=== PATIENT | female | born 1930 | race Caucasian/White ===

== ENCOUNTER 2016-10-25 08:54 | Inpatient (IN) | payer OTHER, BC ==
[2016-10-25] MEDS ORDERED: SODIUM CHLORIDE 1,000 ML IV STA (09:44)
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
[2016-10-25 09:45] VITALS: BMI 33.9
[2016-10-25] MEDS ORDERED: ACETAMINOPHEN 1000 MG/100 ML VIAL (NON FORMULARY) IVPB ONE (09:46)
[2016-10-25] MEDS ORDERED: ACETAMINOPHEN INJECTION 100 ML IVPB ONE (09:56)
[2016-10-25 10:09] LABS: BASOPHIL 0.5 % (0-2.0); EOSINOPHIL 0.1 % (0-4.5); MCH 29.3 pg (25.7-33.7); MCHC 32.1 g/dl (32.0-36.0); MEAN CELL VOLUME 91.4 fl (80-96); MEAN PLT VOLUME 7.4 fl (7.5-11.1); NEUTROPHILS 92.6 % (42.8-82.8); PLATELET COUNT 279 K/MM3 (134-434); RDW 13.1 % (11.6-15.6); WHITE BLOOD COUNT 18.5 K/mm3 (4.0-10.0)
[2016-10-25 10:15] LABS: VENOUS PH 7.41 (7.32-7.42)
[2016-10-25 10:16] LABS: VENOUS BLOOD GAS HCO3 26.5 meq/L (19-25)
[2016-10-25 10:30] LABS: URINE APPEARANCE TURBID; URINE BILIRUBIN NEGATIVE (NEGATIVE); URINE COLOR YELLOW; URINE GLUCOSE (UA) NEGATIVE (NEGATIVE); URINE KETONE NEGATIVE (NEGATIVE); URINE NITRITE POSITIVE (NEGATIVE); URINE UROBILINOGEN NEGATIVE E.U./dl (0.2-1.0)
[2016-10-25 10:32] LABS: URINE BLOOD 2+ (NEGATIVE); URINE LEUK ESTERASE 2+ (NEGATIVE); URINE PROTEIN 2+ (NEGATIVE)
[2016-10-25 10:35] LABS: URINE BACTERIA FEW /hpf (NONE SEEN); URINE RBC 70 /hpf (0-3); URINE WBC 3740 /hpf (3-5)
[2016-10-25 10:40] LABS: INR 1.33 (0.82-1.09); PROTHROMBIN TIME (PATIENT) 14.7 SEC (9.98-11.88)
[2016-10-25 10:52] LABS: ALBUMIN 2.2 g/dl (3.4-5.0); ANION GAP 7 (8-16); BILIRUBIN,TOTAL 0.4 mg/dL (0.2-1.0); CALCIUM 7.9 mg/dL (8.5-10.1); CO2 28 mmol/L (21-32); CREATININE 0.9 mg/dL (0.55-1.02); GLUCOSE,RANDOM 91 mg/dL (74-106); SGPT/ALT 13 U/L (12-78); TOT PROT 5.6 g/dl (6.4-8.2)
[2016-10-25 10:54] LABS: ALK PHOS 85 U/L (45-117); TROPONIN I < 0.02 ng/ml (0.00-0.05)
[2016-10-25 10:55] LABS: SGOT/AST 22 U/L (15-37)
[2016-10-25] MEDS ORDERED: LEVOFLOXACIN 750 MG IVPB 150 ML IVPB ONE ×2 (10:56→11:22)
[2016-10-25] MEDS: SODIUM CHLORIDE 1,000 ML IV SCH ×2 (11:29→17:07)
[2016-10-25] MEDS ORDERED: KETOROLAC TROMETHAMINE 15 MG/ML VIAL ONE (13:06)
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
[2016-10-25] MEDS: DOCUSATE SODIUM 100 MG CAPSULE (FP) PO SCH ×2 (14:48→22:28)
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
[2016-10-25] MEDS: CEFTRIAXONE 2G/100 ML IVPB SCH (17:06)
[2016-10-25] MEDS ORDERED: KETOROLAC TROMETHAMINE 10 MG TABLET PO SCH (18:00)
[2016-10-25] MEDS: ACETAMINOPHEN 325 MG TABLET (FP) PO SCH ×2 (18:28→22:29)
[2016-10-25] MEDS: traMADol HCL 50 MG TABLET PO PRN (22:28)
[2016-10-26] MEDS: traMADol HCL 50 MG TABLET PO PRN ×2 (06:15→21:59)
[2016-10-26] MEDS: DOCUSATE SODIUM 100 MG CAPSULE (FP) PO SCH ×3 (06:16→21:59)
[2016-10-26 08:59] LABS: BASOPHIL 0.3 % (0-2.0); MCH 30.4 pg (25.7-33.7); MCHC 32.8 g/dl (32.0-36.0); MEAN CELL VOLUME 92.6 fl (80-96); MEAN PLT VOLUME 7.6 fl (7.5-11.1); NEUTROPHILS 73.2 % (42.8-82.8); PLATELET COUNT 255 K/MM3 (134-434); RDW 13.2 % (11.6-15.6); WHITE BLOOD COUNT 8.1 K/mm3 (4.0-10.0)
[2016-10-26 09:29] LABS: CALCIUM 7.9 mg/dL (8.5-10.1); CREATININE 0.6 mg/dL (0.55-1.02)
[2016-10-26] MEDS: FLUTICASONE PROP 0.05% 16 GM NASAL SPRAY NS SCH (09:38)
[2016-10-26] MEDS: ACETAMINOPHEN 325 MG TABLET (FP) PO SCH ×4 (09:41→22:17)
[2016-10-26] MEDS: ENOXAPARIN NA (PORCINE) 30 MG/0.3 ML DISP.SYRIN SQ SCH (09:41)
[2016-10-26] MEDS: CEFTRIAXONE 2G/100 ML IVPB SCH (09:41)
[2016-10-26] MEDS: TAMSULOSIN HCL 0.4 MG CAP.ER.24H (FP) PO SCH (09:42)
--- NOTE | 2016-10-26 13:30 | PN ---
Progress Note, Physician History of Present Illness: Awake, alert Some suprapubic discomfort No c/o dysuria/ hematuria No fever/ chills Tolerated cephalosporin Temps, WBC down - Current Medication List Current Medications: Active Medications Acetaminophen (Tylenol -) 650 mg PO QID [facility] Last Admin: 10/26/16 09:41 Dose: 650 mg Docusate Sodium (Colace -) 100 mg PO TID [facility] Last Admin: 10/26/16 06:16 Dose: 100 mg Enoxaparin Sodium (Lovenox -) 30 mg SQ DAILY [facility] Last Admin: 10/26/16 09:41 Dose: 30 mg Fluticasone Propionate (Flonase -) 2 spray NS DAILY [facility] Last Admin: 10/26/16 09:38 Dose: 2 spray Ceftriaxone Sodium (Rocephin 2gm Ivpb (Pre-Docked)) 100 mls @ 200 mls/hr IVPB DAILY [facility] Last Admin: 10/26/16 09:41 Dose: 200 mls/hr Tamsulosin HCl (Flomax -) 0.4 mg PO DAILY@0830 [facility] Last Admin: 10/26/16 09:42 Dose: 0.4 mg Tramadol HCl (Ultram -) 50 mg PO Q8H PRN PRN Reason: PAIN LEVEL 6-10 Last Admin: 10/26/16 06:15 Dose: 50 mg - Objective Vital Signs: Vital Signs Temperature 98 F 10/26/16 07:58 Pulse Rate 72 10/26/16 11:00 Respiratory Rate 20 10/26/16 11:00 Blood Pressure 120/70 10/26/16 11:00 O2 Sat by Pulse Oximetry (%) 96 10/26/16 09:00 Constitutional: Yes: No Distress Eyes: Yes: Conjunctiva Clear Cardiovascular: Yes: Regular Rate and Rhythm, S1, S2 Respiratory: Yes: CTA Bilaterally Gastrointestinal: Yes: Normal Bowel Sounds, Soft, Abdomen, Obese. No: Tenderness Edema: LLE: 1+, RLE: 1+ Labs: CBC, BMP 10/26/16 06:50 10/26/16 06:50 INR, PTT INR 1.33 (0.82-1.09) H D 10/25/16 10:00 Assessment/Plan UTI LF Fever/ leukocytosis PCN allergy Await c/s Continue ceftriaxone
[2016-10-26] MEDS ORDERED: MAGNESIUM HYDROX 2400MG/30ML ORAL SUSPENSION 30 ML CUP PO PRN (14:39)
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
[2016-10-27] MEDS: traMADol HCL 50 MG TABLET PO PRN (06:02)
[2016-10-27] MEDS: DOCUSATE SODIUM 100 MG CAPSULE (FP) PO SCH ×3 (06:03→21:54)
[2016-10-27 07:21] LABS: BASOPHIL 0.6 % (0-2.0); EOSINOPHIL 3.3 % (0-4.5); MCH 29.7 pg (25.7-33.7); MCHC 32.7 g/dl (32.0-36.0); MEAN CELL VOLUME 90.8 fl (80-96); MEAN PLT VOLUME 7.1 fl (7.5-11.1); NEUTROPHILS 66.3 % (42.8-82.8); PLATELET COUNT 298 K/MM3 (134-434); RDW 13.3 % (11.6-15.6); WHITE BLOOD COUNT 7.3 K/mm3 (4.0-10.0)
[2016-10-27 08:12] LABS: CALCIUM 8.1 mg/dL (8.5-10.1)
[2016-10-27 08:18] LABS: ALBUMIN 2.2 g/dl (3.4-5.0); ALK PHOS 82 U/L (45-117); ANION GAP 8 (8-16); BILIRUBIN,TOTAL 0.3 mg/dL (0.2-1.0); CO2 26 mmol/L (21-32); CREATININE 0.6 mg/dL (0.55-1.02); GLUCOSE,RANDOM 92 mg/dL (74-106); SGOT/AST 16 U/L (15-37); SGPT/ALT 12 U/L (12-78); TOT PROT 5.6 g/dl (6.4-8.2)
[2016-10-27] MEDS ORDERED: PT OWN MED DRAWER 7, Y5N ONE ×2 (09:50→22:34)
[2016-10-27] MEDS: CEFTRIAXONE 2G/100 ML IVPB SCH (09:58)
[2016-10-27] MEDS: ACETAMINOPHEN 325 MG TABLET (FP) PO SCH ×4 (09:58→21:54)
[2016-10-27] MEDS: PANTOPRAZOLE 40 MG TABLET (FP) PO SCH (09:59)
[2016-10-27] MEDS: TAMSULOSIN HCL 0.4 MG CAP.ER.24H (FP) PO SCH (09:59)
[2016-10-27] MEDS: ENOXAPARIN NA (PORCINE) 30 MG/0.3 ML DISP.SYRIN SQ SCH (10:00)
[2016-10-27] MEDS: FLUTICASONE PROP 0.05% 16 GM NASAL SPRAY NS SCH (10:00)
--- NOTE | 2016-10-27 11:16 | EKG ---
Test Reason : Blood Pressure : / mmHG Vent. Rate : 064 BPM Atrial Rate : 064 BPM P-R Int : 124 ms QRS Dur : 088 ms QT Int : 410 ms P-R-T Axes : 019 -37 -12 degrees QTc Int : 422 ms NORMAL SINUS RHYTHM LEFT AXIS DEVIATION ABNORMAL ECG WHEN COMPARED WITH ECG OF 11-NOV-2013 12:31, NO SIGNIFICANT CHANGE WAS FOUND Confirmed by FREDDY ELI MD ([id number]) on 10/27/2016 11:15:48 AM Referred By: Confirmed By:FREDDY ELI MD
[2016-10-27] MEDS ORDERED: SODIUM CHLORIDE 1,000 ML IV SCH (12:00)
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
--- NOTE | 2016-10-27 16:30 | PN ---
Progress Note, Physician History of Present Illness: No c/o dysuria Reports mild suprapubic discomfort No c/o fever/ chills WBC now normal - Current Medication List Current Medications: Active Medications Acetaminophen (Tylenol -) 650 mg PO QID [facility] Last Admin: 10/27/16 14:34 Dose: 650 mg Docusate Sodium (Colace -) 100 mg PO TID [facility] Last Admin: 10/27/16 14:36 Dose: 100 mg Enoxaparin Sodium (Lovenox -) 30 mg SQ DAILY [facility] Last Admin: 10/27/16 10:00 Dose: 30 mg Fluticasone Propionate (Flonase -) 2 spray NS DAILY [facility] Last Admin: 10/27/16 10:00 Dose: 2 spray Ceftriaxone Sodium (Rocephin 2gm Ivpb (Pre-Docked)) 100 mls @ 200 mls/hr IVPB DAILY [facility] Last Admin: 10/27/16 09:58 Dose: 200 mls/hr Sodium Chloride (Normal Saline -) 1,000 mls @ 42 mls/hr IV ASDIR [facility] Last Admin: 10/27/16 14:35 Dose: 42 mls/hr Magnesium Hydroxide (Milk Of Magnesia -) 30 ml PO Q8H PRN PRN Reason: INDIGESTION Last Admin: 10/26/16 14:55 Dose: 30 ml Pantoprazole Sodium (Protonix -) 40 mg PO DAILY [facility] Last Admin: 10/27/16 09:59 Dose: 40 mg Tamsulosin HCl (Flomax -) 0.4 mg PO DAILY@0830 [facility] Last Admin: 10/27/16 09:59 Dose: 0.4 mg Tramadol HCl (Ultram -) 50 mg PO Q8H PRN PRN Reason: PAIN LEVEL 6-10 Last Admin: 10/27/16 06:02 Dose: 50 mg - Objective Vital Signs: Vital Signs Temperature 98.3 F 10/27/16 10:00 Pulse Rate 66 10/27/16 10:00 Respiratory Rate 20 10/27/16 10:00 Blood Pressure 150/76 10/27/16 10:00 O2 Sat by Pulse Oximetry (%) 96 10/26/16 21:00 Constitutional: Yes: No Distress, Obese Eyes: Yes: Conjunctiva Clear Cardiovascular: Yes: Regular Rate and Rhythm, S1, S2 Respiratory: Yes: CTA Bilaterally Gastrointestinal: Yes: Normal Bowel Sounds, Soft, Abdomen, Obese. No: Tenderness Edema: Yes Labs: CBC, BMP 10/27/16 06:15 10/27/16 06:15 INR, PTT INR 1.33 (0.82-1.09) H D 10/25/16 10:00 Assessment/Plan UTI Fever/ leukocytosis- resolved PCN allergy Continue ceftriaxone Switch to po am
[2016-10-28] MEDS: DOCUSATE SODIUM 100 MG CAPSULE (FP) PO SCH ×2 (05:49→13:16)
[2016-10-28 07:28] LABS: BASOPHIL 0.5 % (0-2.0); EOSINOPHIL 2.8 % (0-4.5); MCH 29.4 pg (25.7-33.7); MCHC 32.7 g/dl (32.0-36.0); MEAN CELL VOLUME 89.8 fl (80-96); MEAN PLT VOLUME 6.9 fl (7.5-11.1); NEUTROPHILS 67.9 % (42.8-82.8); PLATELET COUNT 306 K/MM3 (134-434); WHITE BLOOD COUNT 7.9 K/mm3 (4.0-10.0)
[2016-10-28 07:55] LABS: CALCIUM 8.1 mg/dL (8.5-10.1)
[2016-10-28 08:01] LABS: ALBUMIN 2.2 g/dl (3.4-5.0); ALK PHOS 82 U/L (45-117); ANION GAP 8 (8-16); BILIRUBIN,TOTAL 0.4 mg/dL (0.2-1.0); CO2 27 mmol/L (21-32); CREATININE 0.7 mg/dL (0.55-1.02); GLUCOSE,RANDOM 93 mg/dL (74-106); SGOT/AST 15 U/L (15-37); SGPT/ALT 11 U/L (12-78); TOT PROT 5.4 g/dl (6.4-8.2)
[2016-10-28] MEDS ORDERED: PT OWN MED DRAWER 7, Y5N ONE (09:20)
[2016-10-28] MEDS: ACETAMINOPHEN 325 MG TABLET (FP) PO SCH ×2 (09:22→13:16)
[2016-10-28] MEDS: FLUTICASONE PROP 0.05% 16 GM NASAL SPRAY NS SCH (09:23)
[2016-10-28] MEDS: ENOXAPARIN NA (PORCINE) 30 MG/0.3 ML DISP.SYRIN SQ SCH (09:23)
[2016-10-28] MEDS: TAMSULOSIN HCL 0.4 MG CAP.ER.24H (FP) PO SCH (09:23)
[2016-10-28] MEDS: PANTOPRAZOLE 40 MG TABLET (FP) PO SCH (09:23)
[2016-10-28] MEDS: CEFTRIAXONE 2G/100 ML IVPB SCH (09:29)
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
--- NOTE | 2016-10-28 11:44 | PN ---
Progress Note, Physician History of Present Illness: OOB in chair No c/o dysuria/ hematuria No suprapubic pain No fever/ chills - Current Medication List Current Medications: Active Medications Acetaminophen (Tylenol -) 650 mg PO QID [facility] Last Admin: 10/28/16 09:22 Dose: 650 mg Docusate Sodium (Colace -) 100 mg PO TID [facility] Last Admin: 10/28/16 05:49 Dose: 100 mg Enoxaparin Sodium (Lovenox -) 30 mg SQ DAILY [facility] Last Admin: 10/28/16 09:23 Dose: 30 mg Fluticasone Propionate (Flonase -) 2 spray NS DAILY [facility] Last Admin: 10/28/16 09:23 Dose: 2 spray Ceftriaxone Sodium (Rocephin 2gm Ivpb (Pre-Docked)) 100 mls @ 200 mls/hr IVPB DAILY [facility] Last Admin: 10/28/16 09:29 Dose: 200 mls/hr Magnesium Hydroxide (Milk Of Magnesia -) 30 ml PO Q8H PRN PRN Reason: INDIGESTION Last Admin: 10/26/16 14:55 Dose: 30 ml Pantoprazole Sodium (Protonix -) 40 mg PO DAILY [facility] Last Admin: 10/28/16 09:23 Dose: 40 mg Polyethylene Glycol (Miralax (For Daily Use) -) 17 gm PO DAILY [facility] Tamsulosin HCl (Flomax -) 0.4 mg PO DAILY@0830 [facility] Last Admin: 10/28/16 09:23 Dose: 0.4 mg Tramadol HCl (Ultram -) 50 mg PO Q8H PRN PRN Reason: PAIN LEVEL 6-10 Last Admin: 10/27/16 06:02 Dose: 50 mg - Objective Vital Signs: Vital Signs Temperature 98.3 F 10/28/16 07:42 Pulse Rate 69 10/28/16 07:42 Respiratory Rate 20 10/28/16 07:42 Blood Pressure 152/79 10/28/16 07:42 O2 Sat by Pulse Oximetry (%) 95 10/27/16 21:00 Constitutional: Yes: No Distress Eyes: Yes: Conjunctiva Clear Cardiovascular: Yes: Regular Rate and Rhythm, S1, S2 Respiratory: Yes: CTA Bilaterally Gastrointestinal: Yes: Normal Bowel Sounds, Soft, Abdomen, Obese. No: Tenderness Edema: Yes Labs: CBC, BMP 10/28/16 06:20 03/20/17 06:20 INR, PTT INR 1.33 (0.82-1.09) H D 10/25/16 10:00 Assessment/Plan UTI Fever/ leukocytosis- resolved PCN allergy S/P R LE fractures Discontinue ceftriaxone Switch to po levaquin 500mg daily x 7d
[2016-10-28 14:31] VITALS: BP 139/60; PULSE 68; TEMP 97.8
[2016-10-29] MEDS ORDERED: POLYETHYLENE GLYCOL 3350 119 GM BTL PO SCH (10:00)
== END 2016-10-28 15:23 | DRG 872 ==
LOC: JER 08:54 → JERBED 10:57 → J6S 13:20
PROVIDERS: ADMIT Internal Medicine; ATTEND Nurse Practitioner Family
DX: A41.9 Sepsis, unspecified organism (principal); N39.0 Urinary tract infection, site not specified; D64.9 Anemia, unspecified; Z96.649 Presence of unspecified artificial hip joint; Z96.659 Presence of unspecified artificial knee joint; Z88.0 Allergy status to penicillin
CPT/HCPCS: 36415; 71010-TC; 80048; 80053; 81003; 81015; 82550; 82803; 83605; 83690; 84484; 85025; 85610; 85730; 86850; 86900; 86901; 87040; 87086; 87186; 93005; 93010; 97116-GP; 97162-PG; 99282-25

== ENCOUNTER 2016-11-04 13:40 | Inpatient (IN) | payer OTHER, BC ==
[2016-11-04 13:59] VITALS: BMI 33.6
[2016-11-04 14:27] LABS: MCH 28.7 pg (25.7-33.7); MCHC 32.2 g/dl (32.0-36.0); PLATELET COUNT 162 K/MM3 (134-434); RDW 14.1 % (11.6-15.6); WHITE BLOOD COUNT 4.7 K/mm3 (4.0-10.0)
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
[2016-11-04] MEDS ORDERED: HEPARIN NA (PORCINE) 5,000 UNITS/ML 1ML VIAL IVPUSH PRN ×6 (14:36→22:46)
[2016-11-04] MEDS ORDERED: HEPARIN INFUSION - 500 ML IVPB SCH (14:45)
[2016-11-04 14:54] LABS: ALBUMIN 2.4 g/dl (3.4-5.0); ANION GAP 10 (8-16); BILIRUBIN,TOTAL 0.4 mg/dL (0.2-1.0); CALCIUM 7.8 mg/dL (8.5-10.1); CO2 29 mmol/L (21-32); CREATININE 0.7 mg/dL (0.55-1.02); GLUCOSE,RANDOM 84 mg/dL (74-106); SGOT/AST 35 U/L (15-37); SGPT/ALT 16 U/L (12-78); TOT PROT 5.8 g/dl (6.4-8.2)
[2016-11-04] MEDS ORDERED: HEPARIN NA (PORCINE) 5,000 UNITS/ML 1ML VIAL SQ ONE (14:55)
[2016-11-04 14:57] LABS: ALK PHOS 77 U/L (45-117); TROPONIN I 0.02 ng/ml (0.00-0.05)
[2016-11-04 14:58] LABS: INR 1.36 (0.82-1.09)
[2016-11-04] MEDS ORDERED: CEFEPIME HCL 2 GM VIAL (RESTRICTED TO ID) IVPB ONE (14:58)
[2016-11-04] MEDS ORDERED: VANCOMYCIN 1,250 MG in DEXTROSE 5%-WATER - 250 ML IVPB ONE (14:58)
[2016-11-04] MEDS ORDERED: LEVOFLOXACIN 750 MG IVPB 150 ML IVPB ONE ×2 (14:59→15:39)
[2016-11-04 15:00] LABS: ACTIVATED PTT 29.8 SECONDS (26.9-34.4)
[2016-11-04 15:26] LABS: URINE APPEARANCE CLEAR; URINE BILIRUBIN NEGATIVE (NEGATIVE); URINE BLOOD NEGATIVE (NEGATIVE); URINE COLOR YELLOW; URINE GLUCOSE (UA) NEGATIVE (NEGATIVE); URINE KETONE NEGATIVE (NEGATIVE); URINE LEUK ESTERASE NEGATIVE (NEGATIVE); URINE NITRITE NEGATIVE (NEGATIVE); URINE PROTEIN NEGATIVE (NEGATIVE); URINE UROBILINOGEN NEGATIVE E.U./dl (0.2-1.0)
[2016-11-04] MEDS ORDERED: CEFEPIME 100 ML IVPB ONE (15:39)
[2016-11-04] MEDS ORDERED: HEPARIN NA (PORCINE) 5,000 UNITS/ML 1ML VIAL ONE (15:40)
[2016-11-04] MEDS ORDERED: HEPARIN INFUSION - 500 ML IVPB ONE (15:41)
--- NOTE | 2016-11-04 16:04 | EKG ---
Test Reason : Blood Pressure : / mmHG Vent. Rate : 066 BPM Atrial Rate : 066 BPM P-R Int : 128 ms QRS Dur : 086 ms QT Int : 414 ms P-R-T Axes : 088 -37 026 degrees QTc Int : 434 ms NORMAL SINUS RHYTHM LEFT AXIS DEVIATION PULMONARY DISEASE PATTERN ABNORMAL ECG WHEN COMPARED WITH ECG OF 25-OCT-2016 12:46, T WAVE VARIATION Confirmed by AHMET TENA MD ([id number]) on 11/04/2016 4:03:22 PM Referred By: Confirmed By:AHMET TENA MD
[2016-11-04] MEDS ORDERED: guaiFENesin 200 MG/10 ML 10 ML UNIT-DOSE CUPS PO ONE (18:14)
[2016-11-04] MEDS ORDERED: guaiFENesin 200 MG/10 ML 10 ML UNIT-DOSE CUPS ONE (18:24)
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
[2016-11-04] MEDS ORDERED: morphine CARPU-JECT 2 MG/1 ML DISP.SYRIN IVPUSH PRN (18:54)
[2016-11-04] MEDS ORDERED: guaiFENesin/D-METHORPHAN HB 10 ML UNIT-DOSE CUPS PO SCH (19:00)
[2016-11-04] MEDS: HEPARIN INFUSION - 500 ML IVPB SCH (19:00)
[2016-11-04] MEDS ORDERED: ACETAMINOPHEN 325 MG TABLET (FP) PO ONE (19:04)
[2016-11-04] MEDS ORDERED: guaiFENesin/D-METHORPHAN HB 10 ML UNIT-DOSE CUPS PO PRN ×2 (19:05→22:46)
[2016-11-04] MEDS ORDERED: ACETAMINOPHEN 325 MG TABLET (FP) ONE (19:26)
[2016-11-04 19:35] LABS: HYPOCHROMIA 1+; PLATELET ESTIMATE ADEQUATE (NORMAL)
[2016-11-04] MEDS ORDERED: PANTOPRAZOLE SODIUM 100 ML IVPB ONE (19:45)
[2016-11-04] MEDS: ALBUTEROL SO4 2.5/IPRATROPIUM 0.5 INH SOL 3 ML VIAL.NEB. NEB SCH ×3 (19:45→23:15)
--- NOTE | 2016-11-04 19:51 | HOSP ---
Subjective - Review of Symptoms Subjective: Pt seen and examined for shortness of breath Pt. states shortness of breath has not improved No chest pain or pressure Vital Signs Period Temp Pulse Resp BP Sys/[place] Pulse Ox Last 24 Hr 99 F-99.4 F 69-101 16-31 122-159/49-98 77-99 GEN: Elderly female in bed, able to speak full sentences HEENT: NCAT, PERRL CARD: S tach S1, S2 RESP: Mildly decreased BS at bases ABD: BSX4 EXT: +2 pitting edema R>L ABG Results ABG pH 7.46 (7.35-7.45) H 11/04/16 20:18 ABG pCO2 at Pt Temp 35.5 mmHg (35-45) 11/04/16 20:18 ABG pO2 at Pt Temp 66.7 mmHg (68-100) L 11/04/16 20:18 ABG HCO3 25.1 meq/L (22-26) 11/04/16 20:18 ABG O2 Sat (Measured) 94.4 % (90-98.9) 11/04/16 20:18 ABG O2 Content 12.2 % vol (15-22) L 11/04/16 20:18 ABG Base Excess 1.9 meq/l (-2-2) 11/04/16 20:18 CBCD WBC 4.7 K/mm3 (4.0-10.0) D 11/04/16 14:20 RBC 3.09 M/mm3 (3.60-5.2) L 11/04/16 14:20 Hgb 8.9 GM/dL (10.7-15.3) L 11/04/16 14:20 Hct 27.5 % (32.4-45.2) L 11/04/16 14:20 MCV 89.0 fl (80-96) 11/04/16 14:20 MCHC 32.2 g/dl (32.0-36.0) 11/04/16 14:20 RDW 14.1 % (11.6-15.6) 11/04/16 14:20 Plt Count 162 K/MM3 (134-434) D 11/04/16 14:20 MPV 7.0 fl (7.5-11.1) L 11/04/16 14:20 CMP Sodium 136 mmol/L (136-145) 11/04/16 14:20 Potassium 4.0 mmol/L (3.5-5.1) 11/04/16 14:20 Chloride 97 mmol/L (98-107) L D 11/04/16 14:20 Carbon Dioxide 29 mmol/L (21-32) 11/04/16 14:20 Anion Gap 10 (8-16) 11/04/16 14:20 BUN 14 mg/dL (7-18) D 11/04/16 14:20 Creatinine 0.7 mg/dL (0.55-1.02) 11/04/16 14:20 Creat Clearance w eGFR > 60 (>60) 11/04/16 14:20 Calcium 7.8 mg/dL (8.5-10.1) L 11/04/16 14:20 Total Bilirubin 0.4 mg/dL (0.2-1.0) 11/04/16 14:20 AST 35 U/L (15-37) D 11/04/16 14:20 ALT 16 U/L (12-78) D 11/04/16 14:20 Alkaline Phosphatase 77 U/L (45-117) 11/04/16 14:20 Total Protein 5.8 g/dl (6.4-8.2) L 11/04/16 14:20 Albumin 2.4 g/dl (3.4-5.0) L 11/04/16 14:20 CT Chest- Bilateral PE, with L. effusion A/P.) 86 F with provoked PE and L. Pna 1.) Provoked PE - C/W Heparin gtt - Monitor H&H' - C/W 02 for hypoxia - Echo 2.) L. PNA - S/P Levaquin in ED - Urine AGs Transfer to ICU CC Time 20 minutes Physical Examination Vital Signs: Vital Signs Temperature 99 F 11/04/16 18:14 Pulse Rate 71 11/04/16 18:14 Respiratory Rate 16 11/04/16 18:14 Blood Pressure 122/56 11/04/16 18:14 O2 Sat by Pulse Oximetry (%) 96 11/04/16 18:14
[2016-11-04 20:21] LABS: ALLENS TEST POSITIVE; ART PUNCT SITE RIGHT RADIAL; ARTERIAL BLD GAS O2 SATURATION 94.4 % (90-98.9); ARTERIAL BLOOD GAS BASE EXCESS 1.9 meq/l (-2-2); ARTERIAL BLOOD GAS HCO3 25.1 meq/L (22-26); ARTERIAL BLOOD GAS PO2 66.7 mmHg (68-100)
[2016-11-04 20:22] LABS: LPM/O2% 3.0LPM; PT. ON O2? YES; TYPE OF O2 NASAL CANNULA
[2016-11-04 20:23] LABS: ARTERIAL BLOOD GAS pH 7.46 (7.35-7.45)
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
[2016-11-04] MEDS ORDERED: ACETAMINOPHEN 325 MG TABLET (FP) PO PRN ×2 (22:00→22:46)
[2016-11-04] MEDS ORDERED: DOCUSATE SODIUM 100 MG CAPSULE (FP) PO SCH (22:00)
[2016-11-04] MEDS ORDERED: SODIUM CHLORIDE 250 ML IV STA (22:07)
[2016-11-04] MEDS ORDERED: LACTATED RINGERS SOLUTION 1,000 ML IV SCH (22:15)
[2016-11-04] MEDS ORDERED: IBUPROFEN 800 MG/8 ML IJ IVPB ONE (22:17)
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
[2016-11-04] MEDS ORDERED: ALBUTEROL SO4 0.083% IH SOL 2.5 MG/3 ML VIAL.NEB. NEB PRN (23:16)
[2016-11-04] MEDS: IBUPROFEN 800 MG/8 ML IJ IVPB PRN (23:53)
[2016-11-05] MEDS ORDERED: SODIUM CHLORIDE 250 ML IV STA ×6 (00:23→05:07)
[2016-11-05 00:29] LABS: MCH 28.6 pg (25.7-33.7); MCHC 32.6 g/dl (32.0-36.0); MEAN CELL VOLUME 87.6 fl (80-96); MEAN PLT VOLUME 7.6 fl (7.5-11.1); PLATELET COUNT 168 K/MM3 (134-434); RDW 14.4 % (11.6-15.6); WHITE BLOOD COUNT 11.6 K/mm3 (4.0-10.0)
[2016-11-05] MEDS: DOPAMINE 400 MG/D5W - 250 ML IVPB SCH ×2 (00:35→14:23)
[2016-11-05 00:53] LABS: INR 1.45 (0.82-1.09); PROTHROMBIN TIME (PATIENT) 16.1 SEC (9.98-11.88)
[2016-11-05 00:56] LABS: ACTIVATED PTT 68.3 SECONDS (26.9-34.4)
[2016-11-05 00:57] LABS: MAGNESIUM 1.5 mg/dL (1.8-2.4); PHOSPHOROUS 2.2 mg/dL (2.5-4.9)
[2016-11-05 00:59] LABS: TROPONIN I 0.02 ng/ml (0.00-0.05)
[2016-11-05] MEDS ORDERED: MAGNESIUM SULF 50% (8.12 MEQ/2 ML-1 GM VIAL) IVPB ONE (01:14)
[2016-11-05 01:18] LABS: BASOPHIL 0.1 % (0-2.0); EOSINOPHIL 0.1 % (0-4.5); NEUTROPHILS 94.7 % (42.8-82.8)
[2016-11-05] MEDS ORDERED: MAGNESIUM SULF 50% (8.12 MEQ/2 ML-1 GM VIAL) ONE (01:19)
[2016-11-05] MEDS ORDERED: GABAPENTIN 100 MG CAPSULE (FP) PO ONE (01:56)
[2016-11-05] MEDS ORDERED: ALBUTEROL SO4 2.5/IPRATROPIUM 0.5 INH SOL 3 ML VIAL.NEB. NEB SCH (02:00)
[2016-11-05] MEDS: OSELTAMIVIR PHOSPHATE 75 MG CAPSULE PO SCH ×3 (02:13→21:19)
[2016-11-05] MEDS: morphine CARPU-JECT 2 MG/1 ML DISP.SYRIN IVPUSH PRN ×3 (02:22→19:35)
[2016-11-05 02:37] LABS: ALBUMIN 2.2 g/dl (3.4-5.0); ANION GAP 13 (8-16); BILIRUBIN,TOTAL 0.5 mg/dL (0.2-1.0); CALCIUM 7.2 mg/dL (8.5-10.1); CO2 27 mmol/L (21-32); CREATININE 0.8 mg/dL (0.55-1.02); GLUCOSE,RANDOM 120 mg/dL (74-106); SGOT/AST 31 U/L (15-37); SGPT/ALT 15 U/L (12-78)
[2016-11-05 02:38] LABS: ALK PHOS 68 U/L (45-117)
[2016-11-05] MEDS ORDERED: POTASSIUM PHOSPHATE 20 MM in DEXTROSE 5%-WATER - 250 ML IVPB ONE (02:47)
[2016-11-05] MEDS ORDERED: ONDANSETRON 4 MG/2 ML VIAL ONE (03:19)
[2016-11-05] MEDS ORDERED: ONDANSETRON 4 MG/2 ML VIAL IVPUSH ONE (04:00)
[2016-11-05] MEDS: DOCUSATE SODIUM 100 MG CAPSULE (FP) PO SCH ×3 (06:04→21:19)
[2016-11-05 06:26] LABS: BASOPHIL 0.1 % (0-2.0); EOSINOPHIL 0.4 % (0-4.5); MCH 29.4 pg (25.7-33.7); MCHC 33.5 g/dl (32.0-36.0); MEAN CELL VOLUME 87.8 fl (80-96); MEAN PLT VOLUME 7.3 fl (7.5-11.1); NEUTROPHILS 93.5 % (42.8-82.8); PLATELET COUNT 170 K/MM3 (134-434); RDW 13.6 % (11.6-15.6); WHITE BLOOD COUNT 10.3 K/mm3 (4.0-10.0)
[2016-11-05 07:03] LABS: ALBUMIN 2.1 g/dl (3.4-5.0); ALK PHOS 66 U/L (45-117); ANION GAP 12 (8-16); BILIRUBIN,TOTAL 0.4 mg/dL (0.2-1.0); CALCIUM 7.4 mg/dL (8.5-10.1); CO2 27 mmol/L (21-32); CREATININE 0.8 mg/dL (0.55-1.02); GLUCOSE,RANDOM 152 mg/dL (74-106); MAGNESIUM 1.9 mg/dL (1.8-2.4); SGOT/AST 33 U/L (15-37); SGPT/ALT 15 U/L (12-78)
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
[2016-11-05] MEDS ORDERED: TAMSULOSIN HCL 0.4 MG CAP.ER.24H (FP) PO SCH (08:30)
[2016-11-05] MEDS: TAMSULOSIN HCL 0.4 MG CAP.ER.24H (FP) PO SCH (08:33)
[2016-11-05] MEDS ORDERED: SODIUM CHLORIDE 1,000 ML IV SCH (09:15)
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
[2016-11-05] MEDS ORDERED: FLUTICASONE PROP 0.05% 16 GM NASAL SPRAY NS SCH (10:00)
[2016-11-05] MEDS ORDERED: FUROSEMIDE 40 MG TABLET (FP) PO SCH ×2 (10:00)
[2016-11-05] MEDS ORDERED: PANTOPRAZOLE 40 MG TABLET (FP) PO SCH (10:00)
[2016-11-05] MEDS ORDERED: LORATADINE 10 MG TABLET PO SCH (10:00)
[2016-11-05] MEDS ORDERED: POLYETHYLENE GLYCOL 3350 119 GM BTL PO SCH (10:00)
[2016-11-05] MEDS: ALBUTEROL SO4 2.5/IPRATROPIUM 0.5 INH SOL 3 ML VIAL.NEB. NEB SCH ×2 (10:06→22:25)
[2016-11-05] MEDS: PANTOPRAZOLE 40 MG TABLET (FP) PO SCH (10:13)
[2016-11-05] MEDS: FLUTICASONE PROP 0.05% 16 GM NASAL SPRAY NS SCH (10:13)
[2016-11-05] MEDS: LORATADINE 10 MG TABLET PO SCH (10:15)
[2016-11-05] MEDS: POLYETHYLENE GLYCOL 3350 119 GM BTL PO SCH (10:18)
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
--- NOTE | 2016-11-05 13:39 | PN ---
Progress Note (short form) - Note Progress Note: Vascular Surgery Pt seen and examined. Right lower ext dvt with PE Had recent right hip surgery Cont IV heparin. Convert to AC of your choice once discharged for 6 months. Cuba Lorenzo DO
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
[2016-11-05] MEDS: HEPARIN INFUSION - 500 ML IVPB SCH ×2 (15:35→22:45)
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
[2016-11-05] MEDS: IBUPROFEN 800 MG/8 ML IJ IVPB PRN (20:14)
[2016-11-05] MEDS ORDERED: PT OWN MED DRAWER 7, Y5N ONE (21:10)
[2016-11-05] MEDS: MUPIROCIN 2% TOPICAL OINTMENT FOR DECOLONIZATION NS SCH (21:19)
[2016-11-06] MEDS: DOPAMINE 400 MG/D5W - 250 ML IVPB SCH (00:30)
[2016-11-06 06:09] LABS: BASOPHIL 0.1 % (0-2.0); MCH 29.3 pg (25.7-33.7); MCHC 32.8 g/dl (32.0-36.0); MEAN CELL VOLUME 89.4 fl (80-96); MEAN PLT VOLUME 7.6 fl (7.5-11.1); NEUTROPHILS 51.5 % (42.8-82.8); PLATELET COUNT 176 K/MM3 (134-434); RDW 14.2 % (11.6-15.6); WHITE BLOOD COUNT 5.5 K/mm3 (4.0-10.0)
[2016-11-06] MEDS: DOCUSATE SODIUM 100 MG CAPSULE (FP) PO SCH ×3 (06:19→21:07)
[2016-11-06 06:38] LABS: MAGNESIUM 1.8 mg/dL (1.8-2.4); PHOSPHOROUS 2.9 mg/dL (2.5-4.9)
[2016-11-06 06:44] LABS: INR 1.29 (0.82-1.09); PROTHROMBIN TIME (PATIENT) 14.3 SEC (9.98-11.88)
[2016-11-06 07:00] LABS: ALBUMIN 2.2 g/dl (3.4-5.0); ALK PHOS 70 U/L (45-117); ANION GAP 10 (8-16); BILIRUBIN,TOTAL 0.3 mg/dL (0.2-1.0); CALCIUM 7.2 mg/dL (8.5-10.1); CO2 27 mmol/L (21-32); CREATININE 0.8 mg/dL (0.55-1.02); GLUCOSE,RANDOM 133 mg/dL (74-106); SGOT/AST 25 U/L (15-37); SGPT/ALT 14 U/L (12-78); TOT PROT 5.1 g/dl (6.4-8.2)
[2016-11-06 07:09] LABS: FERRITIN 869.985 ng/ml (6.9-282.5); THYROID STIMULATING HORMONE 0.63 uIU/ml (0.358-3.74)
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
[2016-11-06] MEDS ORDERED: POTASSIUM CHLORIDE TABS 20 MEQ TABLET.ER (FP) PO ONE (07:32)
[2016-11-06] MEDS ORDERED: POTASSIUM CHLORIDE 40 MEQ/30 ML UNIT DOSE CUP PO ONE (07:34)
[2016-11-06] MEDS ORDERED: MAGNESIUM OXIDE 400 MG TABLET (FP) PO ONE (07:37)
[2016-11-06] MEDS ORDERED: SODIUM CHLORIDE 1,000 ML IV SCH (08:00)
[2016-11-06] MEDS: TAMSULOSIN HCL 0.4 MG CAP.ER.24H (FP) PO SCH (08:02)
[2016-11-06] MEDS: MUPIROCIN 2% TOPICAL OINTMENT FOR DECOLONIZATION NS SCH ×2 (09:00→22:00)
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
[2016-11-06] MEDS: ALBUTEROL SO4 2.5/IPRATROPIUM 0.5 INH SOL 3 ML VIAL.NEB. NEB SCH ×3 (11:29→22:15)
[2016-11-06] MEDS ORDERED: ALTEPLASE IVPB ONE (12:15)
[2016-11-06] MEDS ORDERED: WATER FOR INJ STERILE IVPB ONE (12:15)
[2016-11-06] MEDS ORDERED: methylPREDNISolone NA SUCC 125 MG/2 ML VIAL ONE (13:40)
[2016-11-06 14:00] LABS: ARTERIAL BLD GAS O2 SATURATION 99.4 % (90-98.9); ARTERIAL BLOOD GAS BASE EXCESS -6.4 meq/l (-2-2)
[2016-11-06 14:01] LABS: ALLENS TEST POSITIVE; ART PUNCT SITE LEFT RADIAL; LPM/O2% 50%; MECH. VENT. Y; PT. ON O2? YES; TYPE OF O2 BIPAP; VENT RATE 18; VT/PRESS 15/6
[2016-11-06] MEDS ORDERED: morphine CARPU-JECT 4 MG/1 ML DISP.SYRIN IVPUSH ONE (14:08)
[2016-11-06] MEDS ORDERED: methylPREDNISolone NA SUCC 125 MG/2 ML VIAL IVPB ONE (14:45)
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
--- NOTE | 2016-11-06 15:49 | PN ---
Physical Exam: SUBJECTIVE: Patient seen and examined, patien t came back after embolectomy and ivc filter placement. Patient was complaining of severe pain in back. tachycardia of 144, saturation decreased to 74%, patient cold to touch. patient lips, fingers and feet cynotic. on auscultation, b/l diffuse wheezing present, decrease air entry. Patient was given 125 mg solumedrol, duoneb, started on bipap ( was not maintaining a sturation on non rebreather), nell hugger. Slowly body temp improved, patient cynosis decreased. Patient feel better. ABG reviewed. patient refused for cbc, bmp and lactic acid. radiology team at bed side. Patient daughter states she has this kind of back pain in home also. get CT abdomen and pelvis once stable. OBJECTIVE: Vital Signs Period Temp Pulse Resp BP Sys/Granger Pulse Ox Last 24 Hr 97.9 F-101 F 64-143 16-25 86-166/44-140 96-100 GENERAL: The patient is awake, alert, and fully oriented, in acute distress. HEAD: Normal with no signs of trauma. EYES: PERRL, extraocular movements intact, sclera anicteric, conjunctiva clear. No ptosis. ENT: nose and lips cynotic, but got normal on bipap NECK: Trachea midline, full range of motion, supple. LUNGS: b/l decrease breath sounds, diffuse wheezing but got better after duoneb and steroid : patient had hematuria HEART: s1s2 normal sinus tachycardia ABDOMEN: Soft, mildtender, nondistended, normoactive bowel sounds, EXTREMITIES: right lower limb swollen, cold to touch but improved on nell hugger. PSYCH: Normal mood, normal affect. SKIN: Warm, dry, Laboratory Results - last 24 hr 11/05/16 11/06/16 11/06/16 16:00 05:10 05:10 WBC 5.5 D RBC 2.86 L Hgb 8.4 L Hct 25.6 L MCV 89.4 MCHC 32.8 RDW 14.2 Plt Count 176 MPV 7.6 Neutrophils % 51.5 D Lymphocytes % 35.9 D Monocytes % 5.5 D Eosinophils % 7.0 H D Basophils % 0.1 INR PTT (Actin FS) 59.5 H D 82.8 H D Puncture Site ABG pH ABG pCO2 at Pt Temp ABG pO2 at Pt Temp ABG HCO3 ABG O2 Sat (Measured) ABG O2 Content ABG Base Excess Vargas Test O2 Delivery Device Oxygen Flow Rate Vent Mode Vent Rate Mechanical Rate Pressure Support Vent Sodium Potassium Chloride Carbon Dioxide Anion Gap BUN Creatinine Creat Clearance w eGFR Random Glucose Calcium Phosphorus Magnesium Ferritin Total Bilirubin AST ALT Alkaline Phosphatase LD Total Total Protein Albumin Globulin Albumin/Globulin Ratio Vitamin B12 Serum Folate TSH Free T4 IgG IgA IgM 11/06/16 11/06/16 11/06/16 05:10 05:10 05:10 WBC RBC Hgb Hct MCV MCHC RDW Plt Count MPV Neutrophils % Lymphocytes % Monocytes % Eosinophils % Basophils % INR 1.29 H PTT (Actin FS) Puncture Site ABG pH ABG pCO2 at Pt Temp ABG pO2 at Pt Temp ABG HCO3 ABG O2 Sat (Measured) ABG O2 Content ABG Base Excess Vargas Test O2 Delivery Device Oxygen Flow Rate Vent Mode Vent Rate Mechanical Rate Pressure Support Vent Sodium 142 Potassium 3.3 L Chloride 105 Carbon Dioxide 27 Anion Gap 10 BUN 12 Creatinine 0.8 Creat Clearance w eGFR > 60 Random Glucose 133 H Calcium 7.2 L Phosphorus Magnesium Ferritin 869.985 H Total Bilirubin 0.3 D AST 25 D ALT 14 Alkaline Phosphatase 70 LD Total 419 H Total Protein 5.1 L Albumin 2.2 L Globulin Albumin/Globulin Ratio Vitamin B12 Serum Folate TSH 0.63 Free T4 IgG IgA IgM 11/06/16 11/06/16 11/06/16 05:10 05:10 05:10 WBC RBC Hgb Hct MCV MCHC RDW Plt Count MPV Neutrophils % Lymphocytes % Monocytes % Eosinophils % Basophils % INR PTT (Actin FS) Puncture Site ABG pH ABG pCO2 at Pt Temp ABG pO2 at Pt Temp ABG HCO3 ABG O2 Sat (Measured) ABG O2 Content ABG Base Excess Vargas Test O2 Delivery Device Oxygen Flow Rate Vent Mode Vent Rate Mechanical Rate Pressure Support Vent Sodium Potassium Chloride Carbon Dioxide Anion Gap BUN Creatinine Creat Clearance w eGFR Random Glucose Calcium Phosphorus 2.9 D Magnesium 1.8 Ferritin Total Bilirubin AST ALT Alkaline Phosphatase LD Total Total Protein Albumin Globulin Cancelled Albumin/Globulin Ratio Cancelled Vitamin B12 1001 H Serum Folate 6 TSH Free T4 0.94 IgG Cancelled IgA Cancelled IgM Cancelled 11/06/16 13:57 WBC RBC Hgb Hct MCV MCHC RDW Plt Count MPV Neutrophils % Lymphocytes % Monocytes % Eosinophils % Basophils % INR PTT (Actin FS) Puncture Site Left radial ABG pH 7.30 L D ABG pCO2 at Pt Temp 39.9 ABG pO2 at Pt Temp 174.0 H* D ABG HCO3 19.0 L ABG O2 Sat (Measured) 99.4 H ABG O2 Content 12.2 L ABG Base Excess -6.4 L Vargas Test Positive O2 Delivery Device Bipap Oxygen Flow Rate 50% Vent Mode S/t Vent Rate 18 Mechanical Rate Y Pressure Support Vent 15/6 Sodium Potassium Chloride Carbon Dioxide Anion Gap BUN Creatinine Creat Clearance w eGFR Random Glucose Calcium Phosphorus Magnesium Ferritin Total Bilirubin AST ALT Alkaline Phosphatase LD Total Total Protein Albumin Globulin Albumin/Globulin Ratio Vitamin B12 Serum Folate TSH Free T4 IgG IgA IgM Active Medications Generic Name Dose Route Start Last Admin Trade Name Freq PRN Reason Stop Dose Admin Acetaminophen 650 mg 11/04/16 22:46 11/05/16 01:32 Tylenol - PO 650 mg Q6H PRN Administration FEVER OR PAIN Albuterol Sulfate 1 amp 11/04/16 23:16 11/06/16 13:30 Ventolin 0.083% Nebulizer Soln - NEB 1 amp Q4H PRN Administration SHORT OF BREATH/WHEEZING Albuterol/Ipratropium 1 amp 11/04/16 23:15 11/06/16 11:29 Duoneb - NEB Not Given BID KRIS Docusate Sodium 100 mg 11/05/16 06:00 11/06/16 06:19 Colace - PO 100 mg TID KRIS Administration Fluticasone Propionate 1 spray 11/05/16 10:00 11/05/16 10:13 Flonase - NS 1 spray DAILY KRIS Administration Guaifenesin 10 ml 11/04/16 22:46 11/06/16 04:44 Robitussin Dm - PO 10 ml Q6H PRN Administration COUGH Heparin Sodium (Porcine) 1,000 unit 11/04/16 22:46 Heparin - IVPUSH PRN PRN Heparin Heparin Sodium (Porcine) 5,000 unit 11/04/16 22:46 Heparin - IVPUSH PRN PRN Heparin Heparin Sodium/Dextrose 500 mls @ 20 mls/hr 11/04/16 22:46 11/06/16 08:59 Heparin Infusion - IVPB 950 units/hr TITR KRIS Titration Protocol 1,000 UNITS/HR Dopamine HCl/Dextrose 250 mls @ 17.18 mls/hr 11/05/16 00:30 11/06/16 09:07 Dopamine 400 Mg/D5w - IVPB 4 mcg/kg/min TITR KRIS Titration Protocol 5 MCG/KG/MIN Sodium Chloride 1,000 mls @ 75 mls/hr 11/06/16 08:00 11/06/16 08:01 Normal Saline - IV 75 mls/hr ASDIR KRIS Administration Ibuprofen 600 mg 11/04/16 22:08 11/05/16 20:14 Caldolor Injection - IVPB 600 mg Q8H PRN Administration FEVER Loratadine 10 mg 11/05/16 10:00 11/05/16 10:15 Claritin - PO 10 mg DAILY KRIS Administration Morphine Sulfate 2 mg 11/04/16 22:46 11/05/16 19:35 Morphine Injection - IVPUSH 2 mg Q4H PRN Administration PAIN Mupirocin 1 applic 11/05/16 22:00 11/05/16 21:19 Bactroban Ointment (For Decolonization) - NS 11/10/16 21:59 1 applic BID KRIS Administration Oseltamivir Phosphate 75 mg 11/05/16 02:00 11/05/16 21:19 Tamiflu - PO 11/10/16 01:59 75 mg BID KRIS Administration Pantoprazole Sodium 40 mg 11/05/16 10:00 11/05/16 10:13 Protonix - PO 40 mg DAILY KRIS Administration Polyethylene Glycol 17 gm 11/05/16 10:00 11/05/16 10:18 Miralax (For Daily Use) - PO 17 grams DAILY KRIS Administration Tamsulosin HCl 0.4 mg 11/05/16 08:30 11/06/16 08:02 Flomax - PO 0.4 mg DAILY@0830 KRIS Administration ASSESSMENT/PLAN: VTE, Rt LE DVT and bilateral PE with low blood pressure ( s/p right hemiarthroplasty done in last week of sep ) s/p mechanical embolectomy and IVC filter placement continue on heparin drip follow aptt, keep in theraputic range follow stool of occult avoid diuretic until haemodynamically stable started on BIPAP, 15:5, fio2 50% monitor vital, monitor intake/ out put keep spo2 over 90 on IV fluid Ns 100ml/ hr, morphine for pain control keep leg elevated on duoneb nebulizer Haematuria ( could be due to renal stone vs pulled cath vs coagulopathy) follow cbc, bmp ( patient refused) follow renal usg follow ct abdomen Influenza A continue with tamiflu 75 mg bid droplet precaution low blood pressure improved taper dopa keep map > 65 on iv fluid 100ml/hr fluid : ns 100ml/hr electrolyte; cbc, bmp, lactic acid dvt pro : on heparin drip gi pro on protinix dispo : admit in icu Visit type - Emergency Visit Emergency Visit: Yes ED Registration Date: 11/04/16 Care time: The patient presented to the Emergency Department on the above date and was hospitalized for further evaluation of their emergent condition. - New Patient This patient is new to me today: No - Critical Care Critical Care patient: Yes Total Critical Care Time (in minutes): 60 Critical Care Statement: The care of this patient involved high complexity decision making to prevent further life threatening deterioration of the patient 's condition and/or to evalute & treat vital organ system(s) failure or risk of failure.
[2016-11-06] MEDS ORDERED: VANCOMYCIN 1,250 MG in DEXTROSE 5%-WATER - 250 ML IVPB ONE (17:17)
[2016-11-06] MEDS ORDERED: HEPARIN INFUSION - 500 ML IVPB ONE (17:52)
[2016-11-06] MEDS: PANTOPRAZOLE 40 MG TABLET (FP) PO SCH (17:53)
[2016-11-06] MEDS: LORATADINE 10 MG TABLET PO SCH (17:53)
[2016-11-06] MEDS: POLYETHYLENE GLYCOL 3350 119 GM BTL PO SCH (17:54)
[2016-11-06] MEDS: HEPARIN INFUSION - 500 ML IVPB SCH ×2 (17:54→22:45)
[2016-11-06] MEDS ORDERED: PT OWN MED DRAWER 7, Y5N ONE ×2 (17:58→21:04)
[2016-11-06] MEDS: OSELTAMIVIR PHOSPHATE 75 MG CAPSULE PO SCH ×2 (17:59→21:07)
[2016-11-06] MEDS: morphine CARPU-JECT 2 MG/1 ML DISP.SYRIN IVPUSH PRN (19:19)
[2016-11-06] MEDS: FLUTICASONE PROP 0.05% 16 GM NASAL SPRAY NS SCH (19:27)
[2016-11-06 20:12] LABS: BASOPHIL 0.1 % (0-2.0); EOSINOPHIL 0.1 % (0-4.5); MCHC 32.5 g/dl (32.0-36.0); MEAN CELL VOLUME 89.1 fl (80-96); NEUTROPHILS 91.6 % (42.8-82.8); PLATELET COUNT 131 K/MM3 (134-434); RDW 14.6 % (11.6-15.6); WHITE BLOOD COUNT 9.6 K/mm3 (4.0-10.0)
--- NOTE | 2016-11-06 20:12 | PN ---
Progress Note (short form) - Note Progress Note: PAtient seen and examined feels better s/p ivc filter/thrombectomy today had an episode of hematuria/back pain during procedure Last Vital Signs Temp Pulse Resp BP Pulse Ox 99.2 F 74 18 102/48 97 11/06/16 20:00 11/06/16 20:00 11/06/16 20:15 11/06/16 20:00 11/06/16 20:15 Cor: RSR, No murmurs, No gallops Lungs: Clear to P&A Abd: Soft, Normal bowel sounds, No organomegaly Ext:No significant edema Skin: No rashes, Integument intact Abnormal Lab Results 11/06/16 11/06/16 11/06/16 05:10 05:10 05:10 RBC 2.86 L Hgb 8.4 L Hct 25.6 L Plt Count Neutrophils % Lymphocytes % Monocytes % Eosinophils % 7.0 H D INR PTT (Actin FS) 82.8 H D ABG pH ABG pO2 at Pt Temp ABG HCO3 ABG O2 Sat (Measured) ABG O2 Content ABG Base Excess Potassium 3.3 L Random Glucose 133 H Calcium 7.2 L Ferritin LD Total Total Protein 5.1 L Albumin 2.2 L Vitamin B12 11/06/16 11/06/16 11/06/16 05:10 05:10 05:10 RBC Hgb Hct Plt Count Neutrophils % Lymphocytes % Monocytes % Eosinophils % INR 1.29 H PTT (Actin FS) ABG pH ABG pO2 at Pt Temp ABG HCO3 ABG O2 Sat (Measured) ABG O2 Content ABG Base Excess Potassium Random Glucose Calcium Ferritin 869.985 H LD Total 419 H Total Protein Albumin Vitamin B12 1001 H 11/06/16 11/06/16 13:57 17:55 RBC 2.60 L Hgb 7.5 L D Hct 23.1 L Plt Count 131 L D Neutrophils % 91.6 H D Lymphocytes % 6.0 L D Monocytes % 2.2 L Eosinophils % INR PTT (Actin FS) ABG pH 7.30 L D ABG pO2 at Pt Temp 174.0 H* D ABG HCO3 19.0 L ABG O2 Sat (Measured) 99.4 H ABG O2 Content 12.2 L ABG Base Excess -6.4 L Potassium Random Glucose Calcium Ferritin LD Total Total Protein Albumin Vitamin B12 Current Medications Generic Name Dose Route Start Last Admin Trade Name Freq PRN Reason Stop Dose Admin Acetaminophen 650 mg 11/04/16 22:46 11/05/16 01:32 Tylenol - PO 650 mg Q6H PRN Administration FEVER OR PAIN Albuterol Sulfate 1 amp 11/04/16 23:16 11/06/16 13:30 Ventolin 0.083% Nebulizer Soln - NEB 1 amp Q4H PRN Administration SHORT OF BREATH/WHEEZING Albuterol/Ipratropium 1 amp 11/06/16 16:02 Duoneb - NEB TIDR KRIS Docusate Sodium 100 mg 11/05/16 06:00 11/06/16 17:53 Colace - PO 100 mg TID KRIS Administration Fluticasone Propionate 1 spray 11/05/16 10:00 11/06/16 19:27 Flonase - NS 1 spray DAILY KRIS Administration Guaifenesin 10 ml 11/04/16 22:46 11/06/16 04:44 Robitussin Dm - PO 10 ml Q6H PRN Administration COUGH Heparin Sodium (Porcine) 1,000 unit 11/04/16 22:46 Heparin - IVPUSH PRN PRN Heparin Heparin Sodium (Porcine) 5,000 unit 11/04/16 22:46 Heparin - IVPUSH PRN PRN Heparin Heparin Sodium/Dextrose 500 mls @ 20 mls/hr 11/04/16 22:46 11/06/16 17:54 Heparin Infusion - IVPB 19 mls/hr TITR KRIS Administration Protocol 1,000 UNITS/HR Dopamine HCl/Dextrose 250 mls @ 17.18 mls/hr 11/05/16 00:30 11/06/16 13:17 Dopamine 400 Mg/D5w - IVPB 0 mcg/kg/min TITR KRIS Titration Protocol 5 MCG/KG/MIN Ibuprofen 600 mg 11/04/16 22:08 11/05/16 20:14 Caldolor Injection - IVPB 600 mg Q8H PRN Administration FEVER Loratadine 10 mg 11/05/16 10:00 11/06/16 17:53 Claritin - PO 10 mg DAILY KRIS Administration Morphine Sulfate 2 mg 11/04/16 22:46 11/06/16 19:19 Morphine Injection - IVPUSH 2 mg Q4H PRN Administration PAIN Mupirocin 1 applic 11/05/16 22:00 11/06/16 09:00 Bactroban Ointment (For Decolonization) - NS 11/10/16 21:59 1 applic BID KRIS Administration Oseltamivir Phosphate 75 mg 11/05/16 02:00 11/06/16 17:59 Tamiflu - PO 11/10/16 01:59 75 mg BID KRIS Administration Pantoprazole Sodium 40 mg 11/05/16 10:00 11/06/16 17:53 Protonix - PO 40 mg DAILY KRIS Administration Polyethylene Glycol 17 gm 11/05/16 10:00 11/06/16 17:54 Miralax (For Daily Use) - PO 17 grams DAILY KRIS Administration Tamsulosin HCl 0.4 mg 11/05/16 08:30 11/06/16 08:02 Flomax - PO 0.4 mg DAILY@0830 KRIS Administration A/P 86 y/o patient with Influenza PE DVT/PE s/p mechanical thrombectomy/ivc filter hematuria On heparin drip monitor CBC transfuse as necessary
[2016-11-06 21:01] LABS: CALCIUM 7.2 mg/dL (8.5-10.1); CREATININE 0.8 mg/dL (0.55-1.02)
--- NOTE | 2016-11-06 21:12 | PN ---
Progress Note (short form) - Note Progress Note: Pt seen in the ICU s/p IVF filter placement and thrombectomy. s/p procedure, pt with episode of desaturation, tachycardia, hypothermia, hematuria with pt endorsing back pain. CT ab/pel limited but without noted dissection. Pt now with MAP 60s, hr 60 (sinus on tele) 98%, RR 15 temp 99. Heparin and IVF infusing. Gen: Asleep, denies chest pain/headache/n/v. Endorses resolved back pain, NAD, states she wants to sleep Pulm: No adventitious breath sounds appreciated, 98% on RA Cardiac: S1, S2 Ab: +BS x4, denies abdominal pain Ex: +2 BUE edema, +4 RLE, +2 LLE. +2 Left pedal, +1 rt pedal. BLE warm (rt with slight erythema and warmer than left) : Reyes in place, pink urine, no gross hematuria Wound: Rt groin dressing c/d/i, rt neck dressing c/d/i. Neuro: Arousable, no focal deficit appreciated, responding appropriately Abnormal Lab Results 11/06/16 11/06/16 11/06/16 05:10 05:10 05:10 RBC 2.86 L Hgb 8.4 L Hct 25.6 L Plt Count Neutrophils % Lymphocytes % Monocytes % Eosinophils % 7.0 H D INR PTT (Actin FS) 82.8 H D ABG pH ABG pO2 at Pt Temp ABG HCO3 ABG O2 Sat (Measured) ABG O2 Content ABG Base Excess Potassium 3.3 L Random Glucose 133 H Calcium 7.2 L Ferritin LD Total Total Protein 5.1 L Albumin 2.2 L Vitamin B12 11/06/16 11/06/16 11/06/16 05:10 05:10 05:10 RBC Hgb Hct Plt Count Neutrophils % Lymphocytes % Monocytes % Eosinophils % INR 1.29 H PTT (Actin FS) ABG pH ABG pO2 at Pt Temp ABG HCO3 ABG O2 Sat (Measured) ABG O2 Content ABG Base Excess Potassium Random Glucose Calcium Ferritin 869.985 H LD Total 419 H Total Protein Albumin Vitamin B12 1001 H 11/06/16 11/06/16 11/06/16 13:57 17:55 17:55 RBC 2.60 L Hgb 7.5 L D Hct 23.1 L Plt Count 131 L D Neutrophils % 91.6 H D Lymphocytes % 6.0 L D Monocytes % 2.2 L Eosinophils % INR PTT (Actin FS) ABG pH 7.30 L D ABG pO2 at Pt Temp 174.0 H* D ABG HCO3 19.0 L ABG O2 Sat (Measured) 99.4 H ABG O2 Content 12.2 L ABG Base Excess -6.4 L Potassium Random Glucose 253 H D Calcium 7.2 L Ferritin LD Total Total Protein Albumin Vitamin B12 Intake & Output 11/04/16 11/05/16 11/06/16 11/07/16 23:59 23:59 23:59 23:59 Intake Total 4790 4230.2 Output Total 1000 3900 1800 Balance -9887 419 8862.2 Weight 202 lb 204 lb 3 oz 204 lb 3.2 oz Impression: Pt is an 86yr old woman now s/p IVF filter placement and thrombectomy. Recommendations - -Continue o2 support prn -Incentive spirometer as able -Antibiotics per ID -Continue tamiflu -Pulse checks q1-q2 -Pain management -Serial cbc, transfuse prn -Pressor support prn -IVF as tolerated -Replete electrolytes prn -Lasix prn, BP permitting -PPI -Consider stool softener -Heparin drip per heme/surgery -Chest xray in am -Continue ICU monitoring for now
[2016-11-06 21:22] LABS: BASOPHIL 0.1 % (0-2.0); EOSINOPHIL 0.1 % (0-4.5); MCH 28.7 pg (25.7-33.7); MCHC 32.5 g/dl (32.0-36.0); MEAN CELL VOLUME 88.5 fl (80-96); NEUTROPHILS 93.7 % (42.8-82.8); PLATELET COUNT 132 K/MM3 (134-434); RDW 14.4 % (11.6-15.6); WHITE BLOOD COUNT 8.8 K/mm3 (4.0-10.0)
[2016-11-07] MEDS: DOCUSATE SODIUM 100 MG CAPSULE (FP) PO SCH ×3 (06:01→21:11)
[2016-11-07 06:06] LABS: SERUM IRON 27 ug/dL (27-139); TOTAL IRON BINDING CAPACITY 151 ug/dL (250-450); UIBC 124 ug/dL (118-369)
[2016-11-07 06:31] LABS: MCH 29.7 pg (25.7-33.7); MCHC 33.4 g/dl (32.0-36.0); MEAN CELL VOLUME 88.8 fl (80-96); MEAN PLT VOLUME 8.5 fl (7.5-11.1); NEUTROPHILS 81.9 % (42.8-82.8); PLATELET COUNT 135 K/MM3 (134-434); RDW 14.7 % (11.6-15.6)
[2016-11-07 06:39] LABS: INR 1.1 (0.82-1.09); PROTHROMBIN TIME (PATIENT) 12.1 SEC (9.98-11.88)
[2016-11-07 06:57] LABS: ALBUMIN 2.2 g/dl (3.4-5.0); CALCIUM 7.3 mg/dL (8.5-10.1); CREATININE 0.9 mg/dL (0.55-1.02); PHOSPHOROUS 2.8 mg/dL (2.5-4.9)
[2016-11-07 06:59] LABS: TOT PROT 5.2 g/dl (6.4-8.2)
[2016-11-07] MEDS: ALBUTEROL SO4 2.5/IPRATROPIUM 0.5 INH SOL 3 ML VIAL.NEB. NEB SCH ×3 (07:05→21:45)
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
[2016-11-07] MEDS ORDERED: PT OWN MED DRAWER 7, Y5N ONE ×2 (08:03→21:59)
[2016-11-07] MEDS: TAMSULOSIN HCL 0.4 MG CAP.ER.24H (FP) PO SCH (08:07)
[2016-11-07] MEDS: POLYETHYLENE GLYCOL 3350 119 GM BTL PO SCH (10:18)
[2016-11-07] MEDS: LORATADINE 10 MG TABLET PO SCH (10:20)
[2016-11-07] MEDS: OSELTAMIVIR PHOSPHATE 75 MG CAPSULE PO SCH ×2 (10:20→21:11)
[2016-11-07] MEDS: PANTOPRAZOLE 40 MG TABLET (FP) PO SCH (10:20)
[2016-11-07] MEDS: FLUTICASONE PROP 0.05% 16 GM NASAL SPRAY NS SCH (10:21)
[2016-11-07] MEDS: MUPIROCIN 2% TOPICAL OINTMENT FOR DECOLONIZATION NS SCH ×2 (10:22→20:59)
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
--- NOTE | 2016-11-07 14:06 | PN ---
Physical Exam: SUBJECTIVE: Patient seen and examined, patient feels better. Denies chest pain, sob. States she still have cough and runny nose. patient states that pain in her leg gas decreased. Patient is off dopamin Patient on nasal canula maintaining a saturation of 98-100 % off iv fluid, accepting orally. OBJECTIVE: Vital Signs Period Temp Pulse Resp BP Sys/[place] Pulse Ox Last 24 Hr 98.2 F-101.2 F 57-90 16-20 93-145/48-77 97-100 GENERAL: The patient is awake, alert, and fully oriented, HEAD: Normal with no signs of trauma. EYES: PERRL, extraocular movements intact, ENT: , moist mucous membranes. NECK: Trachea midline, full range of motion, supple. LUNGS: Breath sounds equal, clear to auscultation bilaterally, no wheezes, no crackles, no accessory muscle use. HEART: s1s2 normal ABDOMEN: Soft, nontender, nondistended, normoactive bowel sounds, no guarding, no rebound, EXTREMITIES: right leg swollen, shiny, mild erthema, s/p mechanical thrombectomy NEUROLOGICAL: Cranial nerves II through XII grossly intact. Normal speech, gait not observed. PSYCH: Normal mood, normal affect. SKIN: Warm, normal turgor, no rashes or lesions noted Laboratory Results - last 24 hr 11/05/16 11/06/16 11/06/16 05:15 05:10 17:55 WBC RBC Hgb Hct MCV MCHC RDW Plt Count MPV Neutrophils % Lymphocytes % Monocytes % Eosinophils % Basophils % INR PTT (Actin FS) Fibrinogen Sodium 143 Potassium 4.4 D Chloride 107 Carbon Dioxide 25 Anion Gap 11 BUN 15 D Creatinine 0.8 Creat Clearance w eGFR Random Glucose 253 H D Lactic Acid Calcium 7.2 L Phosphorus Magnesium Iron 27 TIBC 151 L Iron Saturation 18 Total Bilirubin AST ALT Alkaline Phosphatase Total Protein Albumin Random Vancomycin Hep-Induced Plt Ab Rapid 0.412 H Blood Type Antibody Screen Crossmatch 11/06/16 11/06/16 11/06/16 17:55 17:55 21:00 WBC 9.6 D 8.8 RBC 2.60 L 2.53 L Hgb 7.5 L D 7.3 L Hct 23.1 L 22.4 L MCV 89.1 88.5 MCHC 32.5 32.5 RDW 14.6 14.4 Plt Count 131 L D 132 L MPV 8.0 8.0 Neutrophils % 91.6 H D 93.7 H Lymphocytes % 6.0 L D 4.2 L D Monocytes % 2.2 L 1.9 L Eosinophils % 0.1 D 0.1 Basophils % 0.1 0.1 INR PTT (Actin FS) Fibrinogen Sodium Potassium Chloride Carbon Dioxide Anion Gap BUN Creatinine Creat Clearance w eGFR Random Glucose Lactic Acid 1.780 Calcium Phosphorus Magnesium Iron TIBC Iron Saturation Total Bilirubin AST ALT Alkaline Phosphatase Total Protein Albumin Random Vancomycin Hep-Induced Plt Ab Rapid Blood Type Antibody Screen Crossmatch 11/06/16 11/07/16 11/07/16 21:00 05:05 05:05 WBC 8.0 RBC 2.80 L Hgb 8.3 L D Hct 24.8 L MCV 88.8 MCHC 33.4 RDW 14.7 Plt Count 135 MPV 8.5 Neutrophils % 81.9 Lymphocytes % 12.4 D Monocytes % 5.7 D Eosinophils % 0.0 D Basophils % 0.0 INR PTT (Actin FS) 60.0 H Fibrinogen Sodium Potassium Chloride Carbon Dioxide Anion Gap BUN Creatinine Creat Clearance w eGFR Random Glucose Lactic Acid Calcium Phosphorus Magnesium Iron TIBC Iron Saturation Total Bilirubin AST ALT Alkaline Phosphatase Total Protein Albumin Random Vancomycin Hep-Induced Plt Ab Rapid Blood Type AB POSITIVE Antibody Screen Negative Crossmatch See Detail 11/07/16 11/07/16 11/07/16 05:05 05:05 05:05 WBC RBC Hgb Hct MCV MCHC RDW Plt Count MPV Neutrophils % Lymphocytes % Monocytes % Eosinophils % Basophils % INR 1.10 PTT (Actin FS) Fibrinogen 397.0 Sodium 141 Potassium 4.6 Chloride 107 Carbon Dioxide 26 Anion Gap 8 BUN 16 Creatinine 0.9 Creat Clearance w eGFR 59.23 Random Glucose 139 H D Lactic Acid 1.929 Calcium 7.3 L Phosphorus 2.8 Magnesium 2.0 Iron TIBC Iron Saturation Total Bilirubin 1.0 D AST 61 H D ALT 15 Alkaline Phosphatase 67 Total Protein 5.2 L Albumin 2.2 L Random Vancomycin 12.861 Hep-Induced Plt Ab Rapid Blood Type Antibody Screen Crossmatch Active Medications Generic Name Dose Route Start Last Admin Trade Name Freq PRN Reason Stop Dose Admin Acetaminophen 650 mg 11/04/16 22:46 11/05/16 01:32 Tylenol - PO 650 mg Q6H PRN Administration FEVER OR PAIN Albuterol Sulfate 1 amp 11/04/16 23:16 11/06/16 13:30 Ventolin 0.083% Nebulizer Soln - NEB 1 amp Q4H PRN Administration SHORT OF BREATH/WHEEZING Albuterol/Ipratropium 1 amp 11/06/16 16:02 11/07/16 07:05 Duoneb - NEB 1 amp TIDR KRIS Administration Docusate Sodium 100 mg 11/05/16 06:00 11/07/16 06:01 Colace - PO 100 mg TID KRIS Administration Fluticasone Propionate 1 spray 11/05/16 10:00 11/07/16 10:21 Flonase - NS 1 spray DAILY KRIS Administration Guaifenesin 10 ml 11/04/16 22:46 11/06/16 04:44 Robitussin Dm - PO 10 ml Q6H PRN Administration COUGH Heparin Sodium (Porcine) 1,000 unit 11/04/16 22:46 Heparin - IVPUSH PRN PRN Heparin Heparin Sodium (Porcine) 5,000 unit 11/04/16 22:46 Heparin - IVPUSH PRN PRN Heparin Heparin Sodium/Dextrose 500 mls @ 20 mls/hr 11/04/16 22:46 11/06/16 22:45 Heparin Infusion - IVPB 19 mls/hr TITR KRIS Administration Protocol 1,000 UNITS/HR Dopamine HCl/Dextrose 250 mls @ 17.18 mls/hr 11/05/16 00:30 11/06/16 13:17 Dopamine 400 Mg/D5w - IVPB 0 mcg/kg/min TITR KRIS Titration Protocol 5 MCG/KG/MIN Ibuprofen 600 mg 11/04/16 22:08 11/05/16 20:14 Caldolor Injection - IVPB 600 mg Q8H PRN Administration FEVER Loratadine 10 mg 11/05/16 10:00 11/07/16 10:20 Claritin - PO 10 mg DAILY KRIS Administration Morphine Sulfate 2 mg 11/04/16 22:46 11/06/16 19:19 Morphine Injection - IVPUSH 2 mg Q4H PRN Administration PAIN Mupirocin 1 applic 11/05/16 22:00 11/07/16 10:22 Bactroban Ointment (For Decolonization) - NS 11/10/16 21:59 1 applic BID KRIS Administration Oseltamivir Phosphate 75 mg 11/05/16 02:00 11/07/16 10:20 Tamiflu - PO 11/10/16 01:59 75 mg BID KRIS Administration Pantoprazole Sodium 40 mg 11/05/16 10:00 11/07/16 10:20 Protonix - PO 40 mg DAILY KRIS Administration Polyethylene Glycol 17 gm 11/05/16 10:00 11/07/16 10:18 Miralax (For Daily Use) - PO 17 grams DAILY KRIS Administration Tamsulosin HCl 0.4 mg 11/05/16 08:30 11/07/16 08:07 Flomax - PO 0.4 mg DAILY@0830 KRIS Administration ASSESSMENT/PLAN: VTE, Rt LE DVT and bilateral PE with low blood pressure ( s/p right hemiarthroplasty done in last week of sep ) s/p mechanical embolectomy and IVC filter placement continue on heparin drip follow aptt, keep in theraputic range on nasal canula, saturation 98 to 100 monitor vital, monitor intake/ out put keep spo2 over 90 keep leg elevated on duoneb nebulizer Haematuria ( could be due to renal stone vs pulled cath vs coagulopathy) resolved boyd out Influenza A continue with tamiflu 75 mg bid droplet precaution isolation low blood pressure improved off dopamine. fluid : orally allowed electrolyte; repeat in am dvt pro : on heparin drip gi pro on protinix dispo : Transfer to tele Visit type - Emergency Visit Emergency Visit: Yes ED Registration Date: 11/04/16 Care time: The patient presented to the Emergency Department on the above date and was hospitalized for further evaluation of their emergent condition. - New Patient This patient is new to me today: No - Critical Care Critical Care patient: Yes Total Critical Care Time (in minutes): 45 Critical Care Statement: The care of this patient involved high complexity decision making to prevent further life threatening deterioration of the patient 's condition and/or to evalute & treat vital organ system(s) failure or risk of failure.
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
[2016-11-07] MEDS ORDERED: IBUPROFEN 800 MG/8 ML IJ IVPB PRN (18:07)
[2016-11-07] MEDS ORDERED: WATER FOR INJ STERILE IVPB ONE (18:07)
[2016-11-07] MEDS ORDERED: ALBUTEROL SO4 0.083% IH SOL 2.5 MG/3 ML VIAL.NEB. NEB PRN (18:07)
[2016-11-07] MEDS ORDERED: HEPARIN NA (PORCINE) 5,000 UNITS/ML 1ML VIAL IVPUSH PRN ×4 (18:07)
[2016-11-07] MEDS ORDERED: ALTEPLASE IVPB ONE (18:07)
[2016-11-07] MEDS ORDERED: morphine CARPU-JECT 2 MG/1 ML DISP.SYRIN IVPUSH PRN (18:07)
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
[2016-11-07] MEDS: HEPARIN INFUSION - 500 ML IVPB SCH (19:15)
[2016-11-07] MEDS: ACETAMINOPHEN 325 MG TABLET (FP) PO PRN (22:49)
[2016-11-08 00:10] LABS: A/G RATIO 0.9 (0.7-1.7); ALBUMIN 2.2 g/dL (2.9-4.4); ALPHA-1-GLOBULIN 0.4 g/dL (0.0-0.4); BETA GLOBULIN 0.7 g/dL (0.7-1.3); GAMMA GLOBULIN 1.1 g/dL (0.4-1.8); GLOBULIN, TOTAL 2.7 g/dL (2.2-3.9); M-SPIKE 0.3 g/dL (Not Observed); TOTAL PROTEIN 4.9 g/dL (6.0-8.5)
[2016-11-08] MEDS: guaiFENesin/D-METHORPHAN HB 10 ML UNIT-DOSE CUPS PO PRN (01:22)
[2016-11-08] MEDS: DOCUSATE SODIUM 100 MG CAPSULE (FP) PO SCH ×3 (05:13→22:14)
[2016-11-08] MEDS: ALBUTEROL SO4 2.5/IPRATROPIUM 0.5 INH SOL 3 ML VIAL.NEB. NEB SCH ×3 (06:42→22:31)
[2016-11-08 06:56] LABS: BASOPHIL 0.3 % (0-2.0); EOSINOPHIL 1.3 % (0-4.5); MCH 29.4 pg (25.7-33.7); MEAN CELL VOLUME 89.1 fl (80-96); MEAN PLT VOLUME 8.1 fl (7.5-11.1); NEUTROPHILS 53.1 % (42.8-82.8); PLATELET COUNT 135 K/MM3 (134-434); RDW 14.8 % (11.6-15.6); WHITE BLOOD COUNT 6.7 K/mm3 (4.0-10.0)
[2016-11-08 07:06] LABS: INR 1.14 (0.82-1.09); PROTHROMBIN TIME (PATIENT) 12.6 SEC (9.98-11.88)
[2016-11-08 07:29] LABS: ALBUMIN 2.3 g/dl (3.4-5.0); ANION GAP 9 (8-16); BILIRUBIN,TOTAL 0.5 mg/dL (0.2-1.0); CALCIUM 7.4 mg/dL (8.5-10.1); CO2 27 mmol/L (21-32); CREATININE 0.8 mg/dL (0.55-1.02); GLUCOSE,RANDOM 89 mg/dL (74-106); PHOSPHOROUS 2.4 mg/dL (2.5-4.9); SGOT/AST 37 U/L (15-37); SGPT/ALT 17 U/L (12-78); TOT PROT 5.1 g/dl (6.4-8.2)
[2016-11-08 07:30] LABS: ALK PHOS 61 U/L (45-117)
--- NOTE | 2016-11-08 08:03 | PN ---
Progress Note, Physician Chief Complaint: ID Doing well some couph congestion. NO more fever in 24 hours Oseltamavir - Current Medication List Current Medications: Active Medications Acetaminophen (Tylenol -) 650 mg PO Q6H PRN PRN Reason: 0 Last Admin: 11/07/16 22:49 Dose: 650 mg Albuterol Sulfate (Ventolin 0.083% Nebulizer Soln -) 1 amp NEB Q4H PRN PRN Reason: SHORT OF BREATH/WHEEZING Albuterol/Ipratropium (Duoneb -) 1 amp NEB TIDR [facility] Last Admin: 11/08/16 06:42 Dose: 1 amp Docusate Sodium (Colace -) 100 mg PO TID [facility] Last Admin: 11/08/16 05:13 Dose: 100 mg Fluticasone Propionate (Flonase -) 1 spray NS DAILY [facility] Guaifenesin (Robitussin Dm -) 10 ml PO Q6H PRN PRN Reason: COUGH Last Admin: 11/08/16 01:22 Dose: 10 ml Heparin Sodium (Porcine) (Heparin -) 1,000 unit IVPUSH PRN PRN PRN Reason: Heparin Heparin Sodium (Porcine) (Heparin -) 5,000 unit IVPUSH PRN PRN PRN Reason: Heparin Alteplase, Recombinant 10 mg/ (Sterile Water) 20 mls @ 80 mls/hr IVPB ONCE ONE Stop: 11/07/16 18:21 Heparin Sodium/Dextrose (Heparin Infusion -) 500 mls @ 20 mls/hr IVPB TITR KRIS ; 1,000 UNITS/HR PRN Reason: Protocol Last Admin: 11/07/16 19:15 Dose: 19 mls/hr Ibuprofen (Caldolor Injection -) 600 mg IVPB Q8H PRN PRN Reason: FEVER Loratadine (Claritin -) 10 mg PO DAILY [facility] Morphine Sulfate (Morphine Injection -) 2 mg IVPUSH Q4H PRN PRN Reason: PAIN Mupirocin (Bactroban Ointment (For Decolonization) -) 1 applic NS BID [facility] Stop: 11/10/16 21:59 Last Admin: 11/07/16 20:59 Dose: Not Given Oseltamivir Phosphate (Tamiflu -) 75 mg PO BID [facility] Stop: 11/10/16 01:59 Last Admin: 11/07/16 21:11 Dose: 75 mg Pantoprazole Sodium (Protonix -) 40 mg PO DAILY [facility] Polyethylene Glycol (Miralax (For Daily Use) -) 17 gm PO DAILY [facility] Tamsulosin HCl (Flomax -) 0.4 mg PO DAILY@0830 [facility] - Objective Vital Signs: Vital Signs Temperature 98.9 F 11/08/16 05:00 Pulse Rate 62 11/08/16 05:00 Respiratory Rate 20 11/08/16 05:00 Blood Pressure 116/71 11/08/16 05:00 O2 Sat by Pulse Oximetry (%) 96 11/07/16 21:00 Constitutional: Yes: Well Nourished, No Distress HENT: Yes: WNL, Atraumatic Neck: Yes: WNL, Supple Cardiovascular: Yes: S1, S2. No: Murmur Respiratory: Yes: Rhonchi Gastrointestinal: Yes: WNL, Normal Bowel Sounds, Soft. No: Tenderness Edema: Yes Labs: CBC, BMP 11/08/16 05:35 INR, PTT INR 1.14 (0.82-1.09) 11/08/16 05:35 Fibrinogen 397.0 mg/dL (238-498) 11/07/16 05:05 Problem List - Problems (1) DVT (deep venous thrombosis) Code(s): I82.409 - ACUTE EMBOLISM AND THOMBOS UNSP DEEP VN UNSP LOWER EXTREMITY Qualifiers: DVT location: lower extremity Affected thrombotic vein of extremity: popliteal Laterality: right Chronicity: acute Qualified Code(s): I82.431 - Acute embolism and thrombosis of right popliteal vein (2) Influenza A Code(s): J10.1 - FLU DUE TO OTH IDENT INFLUENZA VIRUS W OTH RESP MANIFEST (3) Pulmonary emboli Code(s): I26.99 - OTHER PULMONARY EMBOLISM WITHOUT ACUTE COR PULMONALE Qualifiers: Pulmonary embolism type: other Chronicity: acute Acute cor pulmonale presence: without acute cor pulmonale Qualified Code(s): I26.99 - Other pulmonary embolism without acute cor pulmonale Assessment/Plan Microbiology 11/05/16 11:20 Sputum - Expectorated Gram Stain - Final 11/05/16 11:20 Sputum - Expectorated Sputum Culture - Final Mr S Aureus 11/04/16 15:13 Urine - Urine - Catheterized Urine Culture - Final Contaminated: Please Repeat Laboratory Tests 11/08/16 11/08/16 05:35 05:35 WBC 6.7 Hgb 7.8 L Hct 23.6 L Plt Count 135 BUN 17 Creatinine 0.8 Creat Clearance w eGFR > 60 Assessment Influenza DVT with pulmonary emboli Post right hip arthroplasty Thrombectomy and placement of IVC filter Coronary artery disease MRSA colonization Plan Complete Tamifu No systemic antibiotics Isolation for MRSA (influenza) Placement rehab
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
[2016-11-08] MEDS ORDERED: PT OWN MED DRAWER 7, Y5N ONE ×3 (10:31→23:54)
[2016-11-08] MEDS: MUPIROCIN 2% TOPICAL OINTMENT FOR DECOLONIZATION NS SCH (10:34)
[2016-11-08] MEDS: OSELTAMIVIR PHOSPHATE 75 MG CAPSULE PO SCH ×2 (10:38→22:14)
[2016-11-08] MEDS: PANTOPRAZOLE 40 MG TABLET (FP) PO SCH (10:39)
[2016-11-08] MEDS: TAMSULOSIN HCL 0.4 MG CAP.ER.24H (FP) PO SCH (10:39)
[2016-11-08] MEDS: FLUTICASONE PROP 0.05% 16 GM NASAL SPRAY NS SCH (10:40)
[2016-11-08] MEDS: LORATADINE 10 MG TABLET PO SCH (10:40)
[2016-11-08] MEDS: POLYETHYLENE GLYCOL 3350 119 GM BTL PO SCH (10:44)
--- NOTE | 2016-11-08 11:54 | EKG ---
Test Reason : Blood Pressure : / mmHG Vent. Rate : 093 BPM Atrial Rate : 094 BPM P-R Int : 000 ms QRS Dur : 078 ms QT Int : 326 ms P-R-T Axes : 000 -48 -10 degrees QTc Int : 405 ms POOR DATA QUALITY, INTERPRETATION MAY BE ADVERSELY AFFECTED ACCELERATED JUNCTIONAL RHYTHM NONSPECIFIC ST ABNORMALITY ABNORMAL ECG Confirmed by AMARA FARNSWORTH MD ([id number]) on 11/08/2016 11:54:33 AM Referred By: Confirmed By:AMARA FARNSWORTH MD
[2016-11-08 14:20] LABS: HIGH DOSE HEPARIN SRA 2 % (0-20); LOW DOSE HEPARIN SRA < 1 % (0-20)
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
[2016-11-08] MEDS: HEPARIN INFUSION - 500 ML IVPB SCH (18:27)
[2016-11-08] MEDS: NYSTATIN 100,000 UNIT/GM TOPICAL CREAM 15 GM TUBE TP SCH (22:14)
[2016-11-08] MEDS: ACETAMINOPHEN 325 MG TABLET (FP) PO PRN (22:16)
[2016-11-08] MEDS ORDERED: MAG HYDROX/AL HYDROX/SIMETH 355 ML ORAL.SUSP PO ONE (23:46)
[2016-11-09] MEDS: guaiFENesin/D-METHORPHAN HB 10 ML UNIT-DOSE CUPS PO PRN ×3 (04:12→21:37)
[2016-11-09] MEDS: DOCUSATE SODIUM 100 MG CAPSULE (FP) PO SCH ×3 (05:05→21:28)
[2016-11-09] MEDS: ALBUTEROL SO4 2.5/IPRATROPIUM 0.5 INH SOL 3 ML VIAL.NEB. NEB SCH ×3 (06:00→23:00)
[2016-11-09 07:34] LABS: MCH 28.8 pg (25.7-33.7); MCHC 32.4 g/dl (32.0-36.0); MEAN PLT VOLUME 7.9 fl (7.5-11.1); PLATELET COUNT 129 K/MM3 (134-434); RDW 14.7 % (11.6-15.6); WHITE BLOOD COUNT 6.5 K/mm3 (4.0-10.0)
[2016-11-09 07:59] LABS: ALBUMIN 2.3 g/dl (3.4-5.0); ANION GAP 7 (8-16); CALCIUM 7.8 mg/dL (8.5-10.1); CO2 29 mmol/L (21-32); GLUCOSE,RANDOM 95 mg/dL (74-106)
[2016-11-09 08:03] LABS: ALK PHOS 61 U/L (45-117); BILIRUBIN,TOTAL 0.4 mg/dL (0.2-1.0); CREATININE 0.8 mg/dL (0.55-1.02); MAGNESIUM 2.1 mg/dL (1.8-2.4); SGOT/AST 25 U/L (15-37); SGPT/ALT 17 U/L (12-78); TOT PROT 5.1 g/dl (6.4-8.2)
[2016-11-09 08:20] LABS: ANISOCYTOSIS 1+; HYPOCHROMIA 2+; METAMYELOCYTE 2 % (0-2); MICROCYTOSIS 1+; PLATELET ESTIMATE DECREASED (NORMAL); POLYCHROMASIA 1+
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
[2016-11-09] MEDS ORDERED: FUROSEMIDE 40 MG/4 ML INJECTABLE VIAL IVPUSH SCH (10:00)
[2016-11-09] MEDS ORDERED: PT OWN MED DRAWER 7, Y5N ONE (10:47)
[2016-11-09] MEDS ORDERED: FUROSEMIDE 40 MG/4 ML INJECTABLE VIAL ONE (10:49)
[2016-11-09] MEDS: TAMSULOSIN HCL 0.4 MG CAP.ER.24H (FP) PO SCH (10:56)
[2016-11-09] MEDS: LORATADINE 10 MG TABLET PO SCH (10:56)
[2016-11-09] MEDS: PANTOPRAZOLE 40 MG TABLET (FP) PO SCH (10:56)
[2016-11-09] MEDS: POLYETHYLENE GLYCOL 3350 119 GM BTL PO SCH (10:57)
[2016-11-09] MEDS: FLUTICASONE PROP 0.05% 16 GM NASAL SPRAY NS SCH (10:57)
[2016-11-09] MEDS: OSELTAMIVIR PHOSPHATE 75 MG CAPSULE PO SCH ×2 (10:58→21:30)
[2016-11-09] MEDS: NYSTATIN 100,000 UNIT/GM TOPICAL CREAM 15 GM TUBE TP SCH ×2 (10:58→21:30)
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
[2016-11-09] MEDS ORDERED: FUROSEMIDE 40 MG/4 ML INJECTABLE VIAL IVPUSH ONE (17:39)
[2016-11-09] MEDS: HEPARIN INFUSION - 500 ML IVPB SCH (21:28)
[2016-11-09] MEDS: ACETAMINOPHEN 325 MG TABLET (FP) PO PRN (21:37)
[2016-11-10] MEDS: DOCUSATE SODIUM 100 MG CAPSULE (FP) PO SCH ×3 (06:18→21:13)
[2016-11-10] MEDS: ALBUTEROL SO4 2.5/IPRATROPIUM 0.5 INH SOL 3 ML VIAL.NEB. NEB SCH ×3 (06:20→22:49)
[2016-11-10 07:34] LABS: MCH 29.3 pg (25.7-33.7); MCHC 33.3 g/dl (32.0-36.0); MEAN PLT VOLUME 7.9 fl (7.5-11.1); PLATELET COUNT 159 K/MM3 (134-434); RDW 14.7 % (11.6-15.6); WHITE BLOOD COUNT 9.3 K/mm3 (4.0-10.0)
[2016-11-10 07:46] LABS: ALBUMIN 2.6 g/dl (3.4-5.0); ANION GAP 6 (8-16); BILIRUBIN,TOTAL 0.7 mg/dL (0.2-1.0); CO2 31 mmol/L (21-32); CREATININE 0.8 mg/dL (0.55-1.02); GLUCOSE,RANDOM 106 mg/dL (74-106); SGOT/AST 21 U/L (15-37); SGPT/ALT 18 U/L (12-78); TOT PROT 5.7 g/dl (6.4-8.2)
[2016-11-10 07:47] LABS: ALK PHOS 75 U/L (45-117)
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
[2016-11-10] MEDS ORDERED: PT OWN MED DRAWER 7, Y5N ONE (10:41)
[2016-11-10] MEDS: FLUTICASONE PROP 0.05% 16 GM NASAL SPRAY NS SCH (10:49)
[2016-11-10] MEDS: TAMSULOSIN HCL 0.4 MG CAP.ER.24H (FP) PO SCH (10:49)
[2016-11-10] MEDS: LORATADINE 10 MG TABLET PO SCH (10:49)
[2016-11-10] MEDS: VALSARTAN 40 MG TABLET (FP) PO SCH (10:49)
[2016-11-10] MEDS: FUROSEMIDE 20 MG TABLET (FP) PO SCH (10:50)
[2016-11-10] MEDS: PANTOPRAZOLE 40 MG TABLET (FP) PO SCH (10:50)
[2016-11-10] MEDS: NYSTATIN 100,000 UNIT/GM TOPICAL CREAM 15 GM TUBE TP SCH ×2 (10:50→21:15)
[2016-11-10] MEDS: POLYETHYLENE GLYCOL 3350 119 GM BTL PO SCH (10:50)
[2016-11-10] MEDS: HEPARIN INFUSION - 500 ML IVPB SCH ×2 (10:51→21:13)
[2016-11-10] MEDS: ACETAMINOPHEN 325 MG TABLET (FP) PO PRN ×2 (12:05→21:15)
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
[2016-11-11] MEDS: ACETAMINOPHEN 325 MG TABLET (FP) PO PRN ×2 (05:36→11:52)
[2016-11-11] MEDS: DOCUSATE SODIUM 100 MG CAPSULE (FP) PO SCH ×2 (05:39→13:46)
[2016-11-11 06:25] LABS: MCH 29.1 pg (25.7-33.7); MCHC 33.2 g/dl (32.0-36.0); MEAN CELL VOLUME 87.8 fl (80-96); MEAN PLT VOLUME 7.9 fl (7.5-11.1); PLATELET COUNT 173 K/MM3 (134-434); RDW 14.7 % (11.6-15.6)
[2016-11-11] MEDS: ALBUTEROL SO4 2.5/IPRATROPIUM 0.5 INH SOL 3 ML VIAL.NEB. NEB SCH ×2 (06:38→14:32)
[2016-11-11 06:54] LABS: ALBUMIN 2.5 g/dl (3.4-5.0); ANION GAP 9 (8-16); BILIRUBIN,TOTAL 0.5 mg/dL (0.2-1.0); CALCIUM 8.3 mg/dL (8.5-10.1); CO2 32 mmol/L (21-32); CREATININE 0.8 mg/dL (0.55-1.02); GLUCOSE,RANDOM 92 mg/dL (74-106); MAGNESIUM 1.7 mg/dL (1.8-2.4); SGOT/AST 16 U/L (15-37); SGPT/ALT 15 U/L (12-78); TOT PROT 5.6 g/dl (6.4-8.2)
[2016-11-11 07:01] LABS: ALK PHOS 81 U/L (45-117)
[2016-11-11] MEDS ORDERED: MAGNESIUM OXIDE 400 MG TABLET (FP) PO ONE (09:00)
[2016-11-11] MEDS: TAMSULOSIN HCL 0.4 MG CAP.ER.24H (FP) PO SCH (09:23)
[2016-11-11] MEDS: FLUTICASONE PROP 0.05% 16 GM NASAL SPRAY NS SCH (09:23)
[2016-11-11] MEDS: LORATADINE 10 MG TABLET PO SCH (09:23)
[2016-11-11] MEDS: VALSARTAN 40 MG TABLET (FP) PO SCH (09:23)
[2016-11-11] MEDS: POLYETHYLENE GLYCOL 3350 119 GM BTL PO SCH (09:24)
[2016-11-11] MEDS: PANTOPRAZOLE 40 MG TABLET (FP) PO SCH (09:24)
[2016-11-11] MEDS: NYSTATIN 100,000 UNIT/GM TOPICAL CREAM 15 GM TUBE TP SCH (09:24)
[2016-11-11] MEDS: FUROSEMIDE 20 MG TABLET (FP) PO SCH (09:24)
[2016-11-11] MEDS ORDERED: APIXABAN 5 MG TABLET PO SCH (10:00)
[2016-11-11 12:00] LABS: METAMYELOCYTE 2 % (0-2); PLATELET ESTIMATE ADEQUATE (NORMAL)
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
--- NOTE | 2016-11-11 14:37 | DS ---
Physical Exam: SUBJECTIVE: Patient seen and examined OBJECTIVE: Vital Signs Period Temp Pulse Resp BP Sys/Granger Pulse Ox Last 24 Hr 97.8 F-99.7 F 60-75 18-18 126-142/58-73 93-97 PHYSICAL EXAM GENERAL: The patient is awake, alert, and fully oriented, in no acute distress. HEAD: Normal with no signs of trauma. EYES: PERRL, extraocular movements intact, sclera anicteric, conjunctiva clear. No ptosis. LUNGS: Mild expiratory wheezing HEART: Regular rate and rhythm, S1, S2 without murmur, rub or gallop. ABDOMEN: Soft, nontender, nondistended, normoactive bowel sounds, no guarding, no rebound; suprapubic swelling : red rash on perineum EXTREMITIES: RIGHT LE: 3+ edema, erythema, warmth; LEFT LE: 2+ edema, very mild erythema, no warmth NEUROLOGICAL: Cranial nerves II through XII grossly intact. Normal speech, gait not observed. LABS Laboratory Results - last 24 hr 11/09/16 11/11/16 11/11/16 21:40 05:35 05:35 WBC 9.0 RBC 3.25 L Hgb 9.5 L Hct 28.5 L MCV 87.8 MCHC 33.2 RDW 14.7 Plt Count 173 MPV 7.9 Neutrophils % 68.0 D Lymphocytes % 19.0 D Monocytes % 10.0 Metamyelocytes 2 Myelocytes 1 Differential Comment Manual diff done Platelet Estimate Adequate PTT (Actin FS) 41.4 H Sodium Potassium Chloride Carbon Dioxide Anion Gap BUN Creatinine Creat Clearance w eGFR Random Glucose Calcium Magnesium Total Bilirubin AST ALT Alkaline Phosphatase Total Protein Albumin Stool Occult Blood Negative 11/11/16 06:00 WBC RBC Hgb Hct MCV MCHC RDW Plt Count MPV Neutrophils % Lymphocytes % Monocytes % Metamyelocytes Myelocytes Differential Comment Platelet Estimate PTT (Actin FS) Sodium 140 Potassium 3.6 Chloride 99 Carbon Dioxide 32 Anion Gap 9 BUN 12 Creatinine 0.8 Creat Clearance w eGFR > 60 Random Glucose 92 Calcium 8.3 L Magnesium 1.7 L Total Bilirubin 0.5 D AST 16 D ALT 15 Alkaline Phosphatase 81 Total Protein 5.6 L Albumin 2.5 L Stool Occult Blood HOSPITAL COURSE: Date of Admission:11/04/16 Date of Discharge: 11/11/16 83 year old female with a PMH of PAF, urinary retention, right hip hemiathroplasty (Sep 2016). Recently admitted 10/25/2016-10/28/2016 for urosepsis , discharged to rehab on lovenox. Admitted with RLE DVT and b/l PEs. +Influenza A. RLE DVT Bilateral pulmonary emboli Paroxysmal afib --s/p IVC filter placement and venous thrombectomy 11/06 --[id number] score of 5, will need long-term anticoagulation, cardiology recommending NOAC --Hgb 7.7 yesterday, transfused 1 unit --was maintained on heparin drip, transitioned to Eliquis on discharge Acute respiratory failure, resolved Septic shock secondary to Influenza A, resolved --afebrile, no leukocytosis --Tamiflu course completed, no systemic antibiotics --sputum MRSA colonization Hematuria, resolved --boyd d/c'd Diastolic heart failure, chronic --11/05 echo: LV systolic function normal, Grade I diastolic dysfunction; RV normal; mild TR; mild pHTN; mild AI; trace PI; trace pericardial effusion; pleural effusion present --bilateral lower extremity edema; suprapubic edema; Lasix to PO 20mg daily --daily weights CAD --ACS ruled out: troponins neg x 3 s/p Right hip hemiathrosplasty 09/2016 --pain management Minutes to complete discharge: 35 Discharge Summary Reason For Visit: DEEP VEIN THROMBOSIS; PULMONARY EMBOLISM Current Active Problems CAD (coronary artery disease) (Acute) DVT (deep venous thrombosis) (Acute) Hospital acquired PNA (Acute) Influenza A (Acute) Pulmonary emboli (Acute) - Instructions Diet, Activity, Other Instructions: You are being discharged today to a rehabilitation facility where you will be continued on Eliquis, a blood-thinning medication. Referrals: Kristie Harkins [Primary Care Provider] - Disposition: CARE HOME FACILITY - Home Medications Comprehensive Discharge Medication List: Ambulatory Orders Acetaminophen 650 mg PO QID 10/25/16 Docusate Sodium [Dok] 100 mg PO TID 10/25/16 Fluticasone Propionate 1 spray NS DAILY 10/25/16 Furosemide [Lasix] 40 mg PO ASDIR 10/25/16 Tamsulosin HCl [Flomax] 0.4 mg PO DAILY 10/25/16 Tramadol HCl [Ultram -] 50 mg PO Q8H 10/25/16 Polyethylene Glycol 3350 [Miralax 119 gm Btl -] 17 gm PO DAILY bottle 10/28/16 Guaifenesin/Dextromethorphan [Robitussin Cough-Chest Dm Liq] 10 ml PO Q6H Loratadine [Claritin] 10 mg PO DAILY 11/04/16 Apixaban [Eliquis -] 5 mg PO BID tablet 11/11/16 Nystatin Cream [Mycostatin Cream -] 1 applic TP BID applic 11/11/16 Valsartan [Diovan] 40 mg PO DAILY tablet 11/11/16 This patient is new to me today: No Emergency Visit: Yes ED Registration Date: 11/04/16 Care time: The patient presented to the Emergency Department on the above date and was hospitalized for further evaluation of their emergent condition. Critical Care patient: No - Discharge Referral Referred to [facility] Med P.C.: No
[2016-11-11 14:45] VITALS: BP 135/76; PULSE 65; TEMP 98.6
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
== END 2016-11-11 16:32 | DRG 270 ==
LOC: JER 13:40 → JERBED 17:43 → JICU 21:16 → J4S 11-07 19:41
PROVIDERS: ADMIT Internal Medicine; ATTEND Nurse Practitioner Acute Care
PROC: 06CM3ZZ Extirpation of Matter from Right Femoral Vein, Percutaneous Approach (ICD-10-PCS; principal; 2016-11-05)
PROC: 06CY3ZZ Extirpation of Matter from Lower Vein, Percutaneous Approach (ICD-10-PCS; 2016-11-05)
PROC: 06H03DZ Insertion of Intraluminal Device into Inferior Vena Cava, Percutaneous Approach (ICD-10-PCS; 2016-11-05)
PROC: 3E03317 Introduction of Other Thrombolytic into Peripheral Vein, Percutaneous Approach (ICD-10-PCS; 2016-11-05)
PROC: B51BZZZ Fluoroscopy of Right Lower Extremity Veins (ICD-10-PCS; 2016-11-05)
PROC: 30233N1 Transfusion of Nonautologous Red Blood Cells into Peripheral Vein, Percutaneous Approach (ICD-10-PCS; 2016-11-06)
DX: I97.89 Other postprocedural complications and disorders of the circulatory system, not elsewhere classified (principal); I26.99 Other pulmonary embolism without acute cor pulmonale; J18.9 Pneumonia, unspecified organism; A41.89 Other specified sepsis; R65.21 Severe sepsis with septic shock; J96.01 Acute respiratory failure with hypoxia; I82.431 Acute embolism and thrombosis of right popliteal vein; J90 Pleural effusion, not elsewhere classified; J98.11 Atelectasis; I50.32 Chronic diastolic (congestive) heart failure; K57.90 Diverticulosis of intestine, part unspecified, without perforation or abscess without bleeding; M19.90 Unspecified osteoarthritis, unspecified site; I25.10 Atherosclerotic heart disease of native coronary artery without angina pectoris; J10.1 Influenza due to other identified influenza virus with other respiratory manifestations; M54.89 Other dorsalgia; I48.91 Unspecified atrial fibrillation; R50.9 Fever, unspecified; R31.9 Hematuria, unspecified; E87.6 Hypokalemia; R68.0 Hypothermia, not associated with low environmental temperature; R00.0 Tachycardia, unspecified; Y83.8 Other surgical procedures as the cause of abnormal reaction of the patient, or of later complication, without mention of misadventure at the time of the procedure; D69.6 Thrombocytopenia, unspecified; Z22.322 Carrier or suspected carrier of Methicillin resistant Staphylococcus aureus; Z96.641 Presence of right artificial hip joint; Z96.659 Presence of unspecified artificial knee joint
CPT/HCPCS: 36415; 36430; 36600; 37187; 37191; 71010-TC; 71275-TC; 74176-TC; 76775-TC; 76937-TC; 80048; 80053; 81003; 82272; 82542; 82550; 82607; 82728; 82746; 82784; 82803; 83540; 83550; 83605; 83615; 83735; 83880; 84100; 84155; 84165; 84439; 84443; 84484; 85025; 85027; 85384; 85610; 85730; 86022; 86334; 86850; 86900; 86901; 86922; 87040; 87070; 87086; 87186; 87205; 87804; 87899; 93005; 93010; 93306-TC; 93970-TC; 94640; 94660; 97116-GP; 97162-PG; 99285-25; C1757; C1769; C1880; C1887; C1894; G0480; J1644; P9038; P9058